=== PATIENT | female | born 1985 | race Two or more races ===

== ENCOUNTER 2016-08-26 08:51 | Emergency (ER) | payer SELFPAY ==
--- NOTE | 2016-08-26 09:09 | ER Document Report ---
ED General - General Chief Complaint: Overdose Stated Complaint: POSSIBLE OVERDOSE Mode of Arrival: Ambulatory Information source: Patient Notes: 30 yr old female presents with complaints of accidently taking 2 tablets of vyvanse, with complaints of lightheadedness, dizziness, sensation of floating away. TRAVEL OUTSIDE OF THE [place] IN LAST 30 DAYS: No - HPI Onset: Yesterday Onset/Duration: Sudden Quality of pain: No pain Severity: Mild Pain Level: Denies Associated symptoms: Other Exacerbated by: Denies Relieved by: Denies Similar symptoms previously: No Recently seen / treated by doctor: No - Related Data Allergies/Adverse Reactions: No Known Allergies Allergy (Verified 11/24/12 16:11) Past Medical History - Social History Smoking Status: Current Every Day Smoker Cigarette use (# per day): No Chew tobacco use (# tins/day): No Smoking Education Provided: No Frequency of alcohol use: Social Drug Abuse: None Family History: Reviewed & Not Pertinent Pulmonary Medical History: Reports: Hx Asthma Renal/ Medical History: Denies: Hx Peritoneal Dialysis Surgical Hx: Negative - Immunizations Hx Diphtheria, Pertussis, Tetanus Vaccination: Yes Review of Systems - Review of Systems Notes: REVIEW OF SYSTEMS: CONSTITUTIONAL : Denies fever, chills, or sweats. Denies recent illness. EENT: Denies eye, ear, throat, or mouth pain or symptoms. Denies nasal or sinus congestion or discharge. Denies throat, tongue, or mouth swelling or difficulty swallowing. CARDIOVASCULAR: Denies chest pain. Denies palpitations or racing or irregular heart beat. Denies ankle edema. RESPIRATORY: Denies cough, cold, or chest congestion. Denies shortness of breath, difficulty breathing, or wheezing. GASTROINTESTINAL: Denies abdominal pain or distention. Denies nausea, vomiting , or diarrhea. Denies blood in vomitus, stools, or per rectum. Denies black, tarry stools. Denies constipation. GENITOURINARY: Denies difficulty urinating, painful urination, burning, frequency, blood in urine, or discharge. FEMALE GENITOURINARY: Denies vaginal bleeding, heavy or abnormal periods, irregular periods. Denies vaginal discharge or odor. MUSCULOSKELETAL: Denies back or neck pain or stiffness. Denies joint pain or swelling. SKIN: Denies rash, lesions or sores. HEMATOLOGIC : Denies easy bruising or bleeding. LYMPHATIC: Denies swollen, enlarged glands. NEUROLOGICAL: Admits to feeling dizzy lightheaded PSYCHIATRIC: Denies anxiety or stress. Denies depression, suicidal ideation, or homicidal ideation. ALL OTHER SYSTEMS REVIEWED AND NEGATIVE. Dictation was performed using [employer] voice recognition software PHYSICAL EXAMINATION: GENERAL: Well-appearing, well-nourished and in no acute distress. HEAD: Atraumatic, normocephalic. EYES: Pupils equal round and reactive to light, extraocular movements intact, conjunctiva are normal. ENT: Nares patent, oropharynx clear without exudates. Moist mucous membranes. NECK: Normal range of motion, supple without lymphadenopathy LUNGS: Breath sounds clear to auscultation bilaterally and equal. No wheezes rales or rhonchi. HEART: Regular rate and rhythm without murmurs ABDOMEN: Soft, nontender, nondistended abdomen. No guarding, no rebound. No masses appreciated. Female : deferred Musculoskeletal: Normal range of motion, no pitting or edema. No cyanosis. NEUROLOGICAL: Cranial nerves grossly intact. Normal speech, normal gait. Normal sensory, motor exams PSYCH: Normal mood, normal affect. SKIN: Warm, Dry, normal turgor, no rashes or lesions noted. Physical Exam - Vital signs Vitals: Temp Pulse Resp BP Pulse Ox 98.1 F 107 H 16 133/92 H 97 08/26/16 08:57 08/26/16 08:57 08/26/16 08:57 08/26/16 08:57 08/26/16 08:57 Course - Re-evaluation Re-evalutation: 08/26/16 09:44 contacted poison control, they state to watch for 6 hours from initial onset, patient has been watched for longer than home in stable at this time. I will discharge her since she is stable 08/26/16 10:05 After performing a Medical Screening Examination, I estimate there is LOW risk for ACUTE CORONARY SYNDROME, RESPIRATORY FAILURE, SEPSIS OR MENINGITIS, thus I consider the discharge disposition reasonable. The patient and I have discussed the diagnosis and risks, and we agree with discharging home with close follow- up. We also discussed returning to the Emergency Department immediately if new or worsening symptoms occur. We have discussed the symptoms which are most concerning (e.g., changing or worsening pain, trouble swallowing or breathing, neck stiffness, fever) that necessitate immediate return. - Vital Signs Vital signs: Temp Pulse Resp BP Pulse Ox 98.1 F 107 H 16 133/92 H 97 08/26/16 08:57 08/26/16 08:57 08/26/16 08:57 08/26/16 08:57 08/26/16 08:57 Discharge - Discharge Clinical Impression: Accidental overdose Qualifiers: Encounter type: initial encounter Qualified Code(s): T50.901A - Poisoning by unspecified drugs, medicaments and biological substances, accidental ( unintentional), initial encounter Condition: Stable Disposition: HOME, SELF-CARE Additional Instructions: Follow up with your physician tomorrow for further care or return to the ED IMMEDIATELY if symptoms worsen or new concerns occur
[2016-08-26 10:11] VITALS: BP 131/84
== END 2016-08-26 10:10 | disposition home or self-care (01) ==
LOC: ER 08:51
DX: T50.901A Poisoning by unspecified drugs, medicaments and biological substances, accidental (unintentional), initial encounter (principal); F17.210 Nicotine dependence, cigarettes, uncomplicated
CPT/HCPCS: 99284

== ENCOUNTER 2016-10-17 00:46 | Emergency (ER) | payer BC ==
--- NOTE | 2016-10-17 03:40 | ER Document Report ---
ED General - General Chief Complaint: Chest Pain Stated Complaint: CHEST PAIN Notes: Patient is a 30-year-old female who presents with 2 different complaints. First complaint is that day and half ago she woke up with a painful lump underneath her chin. She did bring a picture with her. The area was reddened and have a small scab in the middle. Since then the redness is totally gone away. She still is a small scab there. No difficulty breathing or swallowing. She says that she woke up with this and did not remember any recent trauma or injuries to the area. She did not recognize any recent bug bites. Patient's second complaint is of chest pain. She said chest pain for several months. She says it is constant. It is always on the right side. It is worse when she pushes over the right side of her chest or she moves her right shoulder in a certain way. She recently quit smoking. She recent started control one month ago. The pain had been going on since before she has started control. She denies any fevers or infections. Pain is not pleuritic. TRAVEL OUTSIDE OF THE [place] IN LAST 30 DAYS: No - Related Data Allergies/Adverse Reactions: No Known Allergies Allergy (Verified 10/17/16 01:22) Past Medical History - Social History Smoking Status: Unknown if Ever Smoked Frequency of alcohol use: None Drug Abuse: None Family History: Reviewed & Not Pertinent Pulmonary Medical History: Reports: Hx Asthma Renal/ Medical History: Denies: Hx Peritoneal Dialysis - Immunizations Hx Diphtheria, Pertussis, Tetanus Vaccination: Yes Review of Systems - Review of Systems Notes: My Normal Review Basic REVIEW OF SYSTEMS: CONSTITUTIONAL : Denies fever, chills, or sweats. Denies recent illness. CARDIOVASCULAR: Chest pain RESPIRATORY: Denies cough, cold, or chest congestion. Denies shortness of breath, difficulty breathing, or wheezing. GASTROINTESTINAL: Denies abdominal pain. Denies nausea, vomiting, or diarrhea. Denies constipation. Last BM: GENITOURINARY: Denies difficulty urinating, painful urination, burning, frequency, or blood in urine. MUSCULOSKELETAL: Denies neck or back pain or joint pain or swelling. SKIN: Denies rash or skin lesions. NEUROLOGICAL: Denies altered mental status or loss of consciousness. Denies headache. Denies weakness or paralysis or loss of use of either side. Denies problems with gait or speech. Denies sensory or motor loss. ALL OTHER SYSTEMS REVIEWED AND NEGATIVE. Physical Exam - Vital signs Vitals: Temp Pulse Resp BP Pulse Ox 98.6 F 96 14 126/84 H 100 10/17/16 01:22 10/17/16 01:22 10/17/16 01:22 10/17/16 01:22 10/17/16 01:22 - Notes Notes: General Appearance: Well nourished, alert, cooperative, no acute distress, mild obvious discomfort. Vitals: reviewed, See vital signs table. Head: no swelling or tenderness to the head. Patient has a small scab underneath her chin. This no surrounding redness. This no swelling. I did do a bedside ultrasound and there is no obvious fluid collection beneath the skin on ultrasound. Eyes: PERRL, EOMI, Conjuctiva clear Mouth: No decreasd moisture Throat: No tonsillar inflammation, No airway obstruction, No lymphadenopathy Neck: Supple, no neck tenderness, Lungs: No wheezing, No rales, No rhonci, No accessory muscle use, good air exchange bilaterally. Heart: Normal rate, Regular rythm, No murmur, no rub Chest wall: Patient has easily reproducible pain to palpation of the muscles of the right upper chest and over the trapezius areas well. Some pain over the posterior trapezius just above the scapula. Extremities: strength 5/5 in all extremities, good pulses in all extremities, no swelling or tenderness in the extremities, no edema. Skin: warm, dry, appropriate color, no rash Neuro: speech clear, oriented x 3, normal affect, responds appropriately to questions. Course - Vital Signs Vital signs: Temp Pulse Resp BP Pulse Ox 98.1 F 96 14 120/78 99 10/17/16 05:00 10/17/16 01:22 10/17/16 05:00 10/17/16 05:00 10/17/16 05:00 - EKG Interpretation by Me Additional EKG results interpreted by me: 10/17/16 03:39 EKG is reviewed and interpreted by me. EKG shows normal sinus rhythm with rate of [address] segment elevation or depression. No ischemic T wave inversions. [place] interval, QRS duration, QTC intervals are within normal range. Old EKG for comparison is from 01/23/2016. - Transfer of Care Notes: 10/17/16 06:20 It is unclear exactly what caused the scab like appearance and initial redness underneath the patient's chin. In comparison to her picture from 24 hours ago her chin is much improved. She has no sniffing swelling below her chin. She has no impending airway compromise on exam. At this time I encourage her to skip a close eye on it and if she develops any redness or swelling she should return to ER immediately. The chest pain seems very musculoskeletal exam. Seasonal reproducible with palpation as well as with certain movements. I will place her on Naprosyn. I do not suspect PE in that she does not have pleuritic pain, her pain is easily reproducible palpation, she has no tachycardia, no tachypnea, and no hypoxemia. Patient encouraged return to ER if she has any worsening of her symptoms. Dictation of this chart was performed using voice recognition software; therefore, there may be some unintended grammatical errors. 10/17/16 06:22 Discharge - Discharge Clinical Impression: Skin lesion Chest pain Qualifiers: Chest pain type: unspecified Qualified Code(s): R07.9 - Chest pain, unspecified Condition: Good Disposition: HOME, SELF-CARE Additional Instructions: CHEST PAIN OF UNCLEAR CAUSE: The exact cause of your chest pain isn't clear. Fortunately, there is no evidence of a dangerous medical condition. Further testing may be required to find the source of the pain. Most often, we find that this pain is coming from the chest wall -- the muscles or rib joints in the chest. But chest pain can come from the lung and lung lining, the esophagus, the heart valves or heart lining, and even the stomach or gallbladder. Rest. Eat lightly until the pain is gone. We may prescribe medicine for pain and inflammation. You should call the physician immediately if the pain radiates to the shoulder, jaw or arms; if you start to run a fever or develop a cough; or if you develop shortness of breath, or other new or alarming symptoms. NORMAL EXAM AND WORKUP: At this time, your examination and workup show no significant abnormality. No significant abnormal physical findings were noted. EKG and imaging (x-ray ) studies that were ordered show no significant abnormality. Although your examination and all studies that were ordered showed no significant abnormal finding, there are no examinations and no studies that are 100% accurate. There is always the possibility that some abnormality could exist and not be detected with physical examination or within the limits and capabilities of laboratory and other studies. You should return or follow up as you were instructed on your visit today for further evaluation if your symptoms do not resolve. CHEST WALL PAIN: Your chest pain may be coming from the chest wall. This is often caused by straining the muscles or joints in the chest during physical activity, direct trauma, coughing, or vigorous vomiting. Persons with arthritis are especially prone to this type of pain, due to inflammation of the cartilage joints near the breast bone. Occasionally, no cause can be found. Rest from strenuous physical activity. This kind of chest pain is usually made worse by movement of the chest. Depending on the symptoms, we may prescribe medicine for pain, muscle relaxation, and antiinflammatory effects. If the pain is new, and seems to be due to muscle strain, cold packs can help. Otherwise, apply gentle warmth to the painful area for 15 minutes every hour or two. You should call contact the doctor immediately if things change. Further evaluation is needed if you develop a fever or cough, if the nature of the pain changes, or if you become short of breath. FOLLOW-UP CARE: If you have been referred to a physician for follow-up care, call the physician s office for an appointment as you were instructed or within the next two days. If you experience worsening or a significant change in your symptoms, notify the physician immediately or return to the Emergency Department at any time for re-evaluation. Please return to ER immediately if you have worsening pain, difficulty breathing , fevers, or feel unwell. Please continue to watch the area under her chin closely. Return to ER immediately if you start having increased swelling or recurrence of redness or difficulty breathing. Please follow-up with a primary care doctor in 3-4 days for reevaluation. Do not take the Naprosyn with other NSAID medications such as Motrin or Ibuprofen. Prescriptions: Naproxen [Naprosyn 250 mg Tablet] 250 mg PO BID #20 tablet Forms: Return to Work
[2016-10-17 05:21] VITALS: BP 120/78
--- NOTE | 2016-10-17 21:12 | EKG REPORT ---
SEVERITY:- NORMAL ECG - SINUS RHYTHM : Confirmed by: Benita Morse MD 17-Oct-2016 21:11:33
== END 2016-10-17 05:20 | disposition home or self-care (01) ==
LOC: ER 00:46
DX: R07.9 Chest pain, unspecified (principal); Z87.891 Personal history of nicotine dependence
CPT/HCPCS: 71010; 93005; 93010; 99285

== ENCOUNTER 2016-10-28 19:04 | Emergency (ER) | payer BC ==
--- NOTE | 2016-10-28 19:40 | ER Document Report ---
ED General - General Chief Complaint: Sore Throat Stated Complaint: SORE THROAT/JAW PAIN Mode of Arrival: Ambulatory Information source: Patient Notes: Patient is 30 year old female who presents with 1 day history of sore throat. She denies any fever, chills, cough, difficulty swallowing or speaking, ear pain or nasal congestion. She has been exposed to family members who have strep and her is here also with same symptoms. She has not taken anything for these symptoms. TRAVEL OUTSIDE OF THE [place] IN LAST 30 DAYS: No - Related Data Allergies/Adverse Reactions: No Known Allergies Allergy (Verified 10/17/16 01:22) Past Medical History - General Information source: Patient - Social History Smoking Status: Unknown if Ever Smoked Family History: Reviewed & Not Pertinent Pulmonary Medical History: Reports: Hx Asthma Renal/ Medical History: Denies: Hx Peritoneal Dialysis - Immunizations Hx Diphtheria, Pertussis, Tetanus Vaccination: Yes Review of Systems - Review of Systems Constitutional: See HPI EENT: See HPI Cardiovascular: No symptoms reported Respiratory: No symptoms reported Gastrointestinal: No symptoms reported Genitourinary: No symptoms reported Female Genitourinary: No symptoms reported Musculoskeletal: No symptoms reported Skin: No symptoms reported Hematologic/Lymphatic: No symptoms reported Neurological/Psychological: No symptoms reported Physical Exam - Vital signs Vitals: Temp Pulse Resp BP Pulse Ox 98.6 F 85 16 118/81 99 10/28/16 19:06 10/28/16 19:06 10/28/16 19:06 10/28/16 19:06 10/28/16 19:06 Interpretation: Normal - Notes Notes: PHYSICAL EXAM: CONSTITUTIONAL: Alert and oriented, well-appearing and in no acute distress. HENT: Normocephalic, atraumatic. Ear canals without erythema or foreign body, TMs pearly holder with good bony landmarks. Nares clear without erythema, septal hematoma or deviation, airway patent. Oropharynx clear without erythema, tonsilar exudate or malocclusion. Trachea midline. Uvula midline. Moist mucous membranes. EYES: Pupils equal round and reactive to light, EOM intact. Sclera anicteric, conjunctiva are normal. No entrapment. NECK: supple without lymphadenopathy. No midline tenderness or paraspinous muscle spasms. No step-offs or deformities. ROM intact. HEART: Regular rate and rhythm without murmurs. LUNGS: CTAB and equal. No wheezes, rales or rhonchi. EXTREMITIES: Normal range of motion, no pitting edema. No cyanosis. Cap Refill < 3 seconds. SKIN: Warm and dry. Normal turgor. No rashes or lesions noted. Course - Re-evaluation Re-evalutation: 10/28/16 19:39 Patient seen and examined. VSS, no respiratory distress, speaking in full sentences without difficulty. Exam benign. Will swab for strep due to exposure. Rapid strep negative - culture pending. Discussed supportive care treatments. At this time, will discharge with return precautions and follow-up recommendations. Verbal discharge instructions given at the bedside and opportunity for questions given. Medication warnings reviewed. Patient is in agreement with this plan and has verbalized understanding of return precautions and the need for primary care follow-up in the next 24-72 hours. - Vital Signs Vital signs: Temp Pulse Resp BP Pulse Ox 98.6 F 85 16 118/81 99 10/28/16 19:06 10/28/16 19:06 10/28/16 19:06 10/28/16 19:06 10/28/16 19:06 Discharge - Discharge Clinical Impression: Pharyngitis Qualifiers: Pharyngitis/tonsillitis etiology: unspecified etiology Qualified Code(s): J02.9 - Acute pharyngitis, unspecified URI (upper respiratory infection) Qualifiers: URI type: unspecified URI Qualified Code(s): J06.9 - Acute upper respiratory infection, unspecified Condition: Stable Disposition: HOME, SELF-CARE Instructions: Sore Throat ([facility]) Additional Instructions: You can use [id number] ZYRTEC (cetirizine) to help with congestion and post-nasal drainage causing your sore throat. You can also take ibuprofen or tylenol as needed for pain. Return immediately for any new or worsening symptoms. Follow-up with primary care provider, call tomorrow to make followup appointment. Referrals: CHRIS LAWRENCE MD [Primary Care Provider] - Follow up in 3-5 days
[2016-10-28 21:43] VITALS: BP 120/78
== END 2016-10-28 21:05 | disposition home or self-care (01) ==
LOC: ER 19:04
DX: J02.9 Acute pharyngitis, unspecified (principal); J06.9 Acute upper respiratory infection, unspecified
CPT/HCPCS: 87070; 87880; 99283

== ENCOUNTER 2017-07-02 15:38 | Emergency (ER) | payer BC ==
--- NOTE | 2017-07-02 15:55 | ER Document Report ---
ED Medical Screen (RME) - General Chief Complaint: Pelvic Pain Stated Complaint: ABDOMINAL PAIN Time Seen by Provider: 07/02/17 15:49 Notes: This 31-year-old female patient thinks she may be miscarrying. Last menstrual period was around 05/16/2017. She is not certain if she was or not. This would be her first if she is . She developed some vaginal bleeding with bright red blood and clots and cramping yesterday. She reports passing a large clot or tissue that she has saved in a plastic bag. I have greeted and performed a rapid initial assessment of this patient. A comprehensive ED assessment and evaluation of the patient, analysis of test results and completion of the medical decision making process will be conducted by additional ED providers. TRAVEL OUTSIDE OF THE [place] IN LAST 30 DAYS: No - Related Data Allergies/Adverse Reactions: No Known Allergies Allergy (Verified 10/17/16 01:22) Home Medications: Current Home Medications No Home Medications 07/02/17 [History] Past Medical History - General Last Menstrual Period: 05/15/17 - Social History Chew tobacco use (# tins/day): No Frequency of alcohol use: None Drug Abuse: None Family history: None Pulmonary Medical History: Reports: Hx Asthma Renal/ Medical History: Denies: Hx Peritoneal Dialysis - Immunizations Hx Diphtheria, Pertussis, Tetanus Vaccination: Yes Physical Exam - Vital signs Vitals: Temp Pulse Resp BP Pulse Ox 98.3 F 122 H 20 132/66 H 100 07/02/17 15:44 07/02/17 15:44 07/02/17 15:44 07/02/17 15:44 07/02/17 15:44 Course - Vital Signs Vital signs: Temp Pulse Resp BP Pulse Ox 98.3 F 122 H 20 132/66 H 100 07/02/17 15:44 07/02/17 15:44 07/02/17 15:44 07/02/17 15:44 07/02/17 15:44
[2017-07-02 16:21] LABS: ABSOLUTE EOSINOPHILS # (AUTO) 0.1 10^3/uL (0.0-0.6); ABSOLUTE LYMPHOCYTES (AUTO) 1.4 10^3/uL (0.5-4.7); ABSOLUTE MONOCYTES (AUTO) 0.5 10^3/uL (0.1-1.4); ABSOLUTE NEUT (AUTO) 3.7 10^3/uL (1.7-8.2); BASOPHILS % (AUTO) 0.8 % (0-2); EOSINOPHILS % (AUTO) 1.2 % (0-6); HEMATOCRIT 35.4 % (36.0-47.0); HEMOGLOBIN 11.4 g/dL (12.0-15.5); HGB HCT DIFFERENCE -1.2; LYMPHOCYTES % (AUTO) 24.3 % (13-45); MEAN CORPUSCULAR HEMOGLOBIN 23.2 pg (27.0-33.4); MEAN CORPUSCULAR HGB CONC 32.1 g/dL (32.0-36.0); MEAN CORPUSCULAR VOLUME 72 fl (80-97); MONOCYTES % (AUTO) 8.1 % (3-13); RED BLOOD COUNT 4.91 10^6/uL (3.72-5.28); SEGMENTED NEUTROPHILS % (AUTO) 65.6 % (42-78); WHITE BLOOD COUNT 5.6 10^3/uL (4.0-10.5)
[2017-07-02 16:28] VITALS: BP 123/63
--- NOTE | 2017-07-02 17:04 | ER Document Report ---
ED General - General Chief Complaint: Pelvic Pain Stated Complaint: ABDOMINAL PAIN Time Seen by Provider: 07/02/17 15:49 Mode of Arrival: Ambulatory Information source: Patient Notes: 31-year-old female presents with complaints of vaginal bleeding concern for miscarriage. Patient noted a large clots today. Pt denies any previous TRAVEL OUTSIDE OF THE [place] IN LAST 30 DAYS: No - HPI Onset: Yesterday Onset/Duration: Sudden Quality of pain: Cramping Severity: Mild Pain Level: 1 Associated symptoms: Other Exacerbated by: Denies Relieved by: Denies Similar symptoms previously: No Recently seen / treated by doctor: No - Related Data Allergies/Adverse Reactions: No Known Allergies Allergy (Verified 10/17/16 01:22) Home Medications: Current Home Medications No Home Medications 07/02/17 [History] Past Medical History - General Last Menstrual Period: 05/15/17 - Social History Smoking Status: Current Some Day Smoker Cigarette use (# per day): Yes Chew tobacco use (# tins/day): No Smoking Education Provided: No Frequency of alcohol use: None Drug Abuse: None Family History: Reviewed & Not Pertinent Patient has suicidal ideation: No Patient has homicidal ideation: No Pulmonary Medical History: Reports: Hx Asthma Renal/ Medical History: Denies: Hx Peritoneal Dialysis - Immunizations Hx Diphtheria, Pertussis, Tetanus Vaccination: Yes Review of Systems - Review of Systems Notes: REVIEW OF SYSTEMS: CONSTITUTIONAL : Denies fever, chills, or sweats. Denies recent illness. EENT: Denies eye, ear, throat, or mouth pain or symptoms. Denies nasal or sinus congestion or discharge. Denies throat, tongue, or mouth swelling or difficulty swallowing. CARDIOVASCULAR: Denies chest pain. Denies palpitations or racing or irregular heart beat. Denies ankle edema. RESPIRATORY: Denies cough, cold, or chest congestion. Denies shortness of breath, difficulty breathing, or wheezing. GASTROINTESTINAL: Denies abdominal pain or distention. Denies nausea, vomiting , or diarrhea. Denies blood in vomitus, stools, or per rectum. Denies black, tarry stools. Denies constipation. GENITOURINARY: Denies difficulty urinating, painful urination, burning, frequency, blood in urine, or discharge. FEMALE GENITOURINARY: Admits to vaginal bleeding MUSCULOSKELETAL: Denies back or neck pain or stiffness. Denies joint pain or swelling. SKIN: Denies rash, lesions or sores. HEMATOLOGIC : Denies easy bruising or bleeding. LYMPHATIC: Denies swollen, enlarged glands. NEUROLOGICAL: Denies confusion or altered mental status. Denies passing out or loss of consciousness. Denies dizziness or lightheadedness. Denies headache. Denies weakness or paralysis or loss of use of either side. Denies problems with gait or speech. Denies sensory loss, numbness, or tingling. Denies seizures. PSYCHIATRIC: Denies anxiety or stress. Denies depression, suicidal ideation, or homicidal ideation. ALL OTHER SYSTEMS REVIEWED AND NEGATIVE. PHYSICAL EXAMINATION: GENERAL: Well-appearing, well-nourished and in no acute distress. HEAD: Atraumatic, normocephalic. EYES: Pupils equal round and reactive to light, extraocular movements intact, conjunctiva are normal. ENT: Nares patent, oropharynx clear without exudates. Moist mucous membranes. NECK: Normal range of motion, supple without lymphadenopathy LUNGS: Breath sounds clear to auscultation bilaterally and equal. No wheezes rales or rhonchi. HEART: Regular rate and rhythm without murmurs ABDOMEN: Soft, nontender, nondistended abdomen. No guarding, no rebound. No masses appreciated. Female : deferred Musculoskeletal: Normal range of motion, no pitting or edema. No cyanosis. NEUROLOGICAL: Cranial nerves grossly intact. Normal speech, normal gait. Normal sensory, motor exams PSYCH: Normal mood, normal affect. SKIN: Warm, Dry, normal turgor, no rashes or lesions noted. Dictation was performed using [employer] voice recognition software Physical Exam - Vital signs Vitals: Temp Pulse Resp BP Pulse Ox 98.3 F 122 H 20 132/66 H 100 07/02/17 15:44 07/02/17 15:44 07/02/17 15:44 07/02/17 15:44 07/02/17 15:44 Course - Re-evaluation Re-evalutation: 07/02/17 17:10 Patient is noted to have been Quant was quite low though, I will have a repeat in 48 Hours However She Did Pass very large clots which have been sent down to be evaluated by pathology Patient otherwise appears in no distress vital signs are stable After performing a Medical Screening Examination, I estimate there is LOW risk for ACUTE APPENDICITIS, BOWEL OBSTRUCTION, ACUTE CHOLECYSTITIS, PERFORATED DIVERTICULITIS, INCARCERATED HERNIA, PANCREATITIS, PELVIC INFLAMMATORY DISEASE, PERFORATED ULCER, ECTOPIC , or TUBO-OVARIAN ABSCESS, thus I consider the discharge disposition reasonable. Also, there is no evidence or peritonitis , sepsis, or toxicity. I have reevaluated this patient multiple times and no significant life threatening changes are noted. The patient and I have discussed the diagnosis and risks, and we agree with discharging home with close follow-up with the understanding that symptoms and presentations can change. We also discussed returning to the Emergency Department immediately if new or worsening symptoms occur. We have discussed the symptoms which are most concerning (e.g., bloody stool, fever, changing or worsening pain, vomiting) that necessitate immediate return. - Vital Signs Vital signs: Temp Pulse Resp BP Pulse Ox 98.8 F 93 18 123/63 97 07/02/17 16:27 07/02/17 16:27 07/02/17 16:27 07/02/17 16:27 07/02/17 16:27 - Laboratory Result Diagrams: 07/02/17 15:55 Laboratory results interpreted by me: 07/02/17 07/02/17 15:55 15:55 Hgb 11.4 L Hct 35.4 L MCV 72 L MCH 23.2 L Beta HCG, Quant 138.30 H Discharge - Discharge Clinical Impression: Threatened miscarriage Condition: Stable Disposition: HOME, SELF-CARE Instructions: Threatened Miscarriage ([facility]) Forms: Follow-Up Laboratory Testing Referrals: [facility] [Provider Group] - 07/04/17
== END 2017-07-02 17:14 | disposition home or self-care (01) ==
LOC: ER 15:38
DX: O20.0 Threatened abortion (principal); O99.331 Smoking (tobacco) complicating pregnancy, first trimester; F17.210 Nicotine dependence, cigarettes, uncomplicated; O99.511 Diseases of the respiratory system complicating pregnancy, first trimester; J45.909 Unspecified asthma, uncomplicated; Z3A.01 Less than 8 weeks gestation of pregnancy; O26.891 Other specified pregnancy related conditions, first trimester
CPT/HCPCS: 36415; 84702; 85025; 86900; 86901; 88305; 99284

== ENCOUNTER 2017-07-03 15:20 | Emergency (ER) | payer BC ==
[2017-07-03 15:46] VITALS: BP 123/77
--- NOTE | 2017-07-03 15:53 | ER Document Report ---
ED Medical Screen (RME) - General Chief Complaint: Abdominal Pain Stated Complaint: ABDOMINAL PAIN Time Seen by Provider: 07/03/17 15:52 Notes: 31-year-old female patient seen here yesterday with hCG level of 138, oh positive blood. Report symptoms of cramping and bleeding gotten worse. I have greeted and performed a rapid initial assessment of this patient. A comprehensive ED assessment and evaluation of the patient, analysis of test results and completion of the medical decision making process will be conducted by additional ED providers. TRAVEL OUTSIDE OF THE [place] IN LAST 30 DAYS: No - Related Data Allergies/Adverse Reactions: No Known Allergies Allergy (Verified 07/03/17 15:21) Past Medical History - Social History Family history: None Pulmonary Medical History: Reports: Hx Asthma Renal/ Medical History: Denies: Hx Peritoneal Dialysis - Immunizations Hx Diphtheria, Pertussis, Tetanus Vaccination: Yes Physical Exam - Vital signs Vitals: Temp Pulse Resp BP Pulse Ox 98.8 F 88 16 123/77 100 07/03/17 15:45 07/03/17 15:45 07/03/17 15:45 07/03/17 15:45 07/03/17 15:45 Course - Vital Signs Vital signs: Temp Pulse Resp BP Pulse Ox 98.8 F 88 16 123/77 100 07/03/17 15:45 07/03/17 15:45 07/03/17 15:45 07/03/17 15:45 07/03/17 15:45
--- NOTE | 2017-07-03 16:58 | ER Document Report ---
ED General - General Chief Complaint: Abdominal Pain Stated Complaint: ABDOMINAL PAIN Time Seen by Provider: 07/03/17 15:52 Mode of Arrival: Ambulatory Information source: Patient Notes: 31-year-old female who was seen by myself yesterday with an hCG quant of 138 presents today with continued bleeding and concerns for miscarriage, I had explained to the patient yesterday that she had come back in 48 hours however she wanted to be sure so she presented today TRAVEL OUTSIDE OF THE [place] IN LAST 30 DAYS: No - HPI Onset: Other - 2 days ago Onset/Duration: Persistent Quality of pain: Cramping Severity: Mild Pain Level: 1 Associated symptoms: Other Exacerbated by: Denies Relieved by: Denies Similar symptoms previously: Yes Recently seen / treated by doctor: Yes - Related Data Allergies/Adverse Reactions: No Known Allergies Allergy (Verified 07/03/17 15:21) Past Medical History - Social History Smoking Status: Current Some Day Smoker Cigarette use (# per day): Yes Chew tobacco use (# tins/day): No Smoking Education Provided: No Frequency of alcohol use: None Drug Abuse: None Family History: Reviewed & Not Pertinent Patient has suicidal ideation: No Patient has homicidal ideation: No Pulmonary Medical History: Reports: Hx Asthma Renal/ Medical History: Denies: Hx Peritoneal Dialysis - Immunizations Hx Diphtheria, Pertussis, Tetanus Vaccination: Yes Review of Systems - Review of Systems Notes: REVIEW OF SYSTEMS: CONSTITUTIONAL : Denies fever, chills, or sweats. Denies recent illness. EENT: Denies eye, ear, throat, or mouth pain or symptoms. Denies nasal or sinus congestion or discharge. Denies throat, tongue, or mouth swelling or difficulty swallowing. CARDIOVASCULAR: Denies chest pain. Denies palpitations or racing or irregular heart beat. Denies ankle edema. RESPIRATORY: Denies cough, cold, or chest congestion. Denies shortness of breath, difficulty breathing, or wheezing. GASTROINTESTINAL: Denies abdominal pain or distention. Denies nausea, vomiting , or diarrhea. Denies blood in vomitus, stools, or per rectum. Denies black, tarry stools. Denies constipation. GENITOURINARY: Denies difficulty urinating, painful urination, burning, frequency, blood in urine, or discharge. FEMALE GENITOURINARY: Admits to vaginal bleeding MUSCULOSKELETAL: Denies back or neck pain or stiffness. Denies joint pain or swelling. SKIN: Denies rash, lesions or sores. HEMATOLOGIC : Denies easy bruising or bleeding. LYMPHATIC: Denies swollen, enlarged glands. NEUROLOGICAL: Denies confusion or altered mental status. Denies passing out or loss of consciousness. Denies dizziness or lightheadedness. Denies headache. Denies weakness or paralysis or loss of use of either side. Denies problems with gait or speech. Denies sensory loss, numbness, or tingling. Denies seizures. PSYCHIATRIC: Denies anxiety or stress. Denies depression, suicidal ideation, or homicidal ideation. ALL OTHER SYSTEMS REVIEWED AND NEGATIVE. PHYSICAL EXAMINATION: GENERAL: Well-appearing, well-nourished and in no acute distress. HEAD: Atraumatic, normocephalic. EYES: Pupils equal round and reactive to light, extraocular movements intact, conjunctiva are normal. ENT: Nares patent, oropharynx clear without exudates. Moist mucous membranes. NECK: Normal range of motion, supple without lymphadenopathy LUNGS: Breath sounds clear to auscultation bilaterally and equal. No wheezes rales or rhonchi. HEART: Regular rate and rhythm without murmurs ABDOMEN: Soft, nontender, nondistended abdomen. No guarding, no rebound. No masses appreciated. Female : deferred Musculoskeletal: Normal range of motion, no pitting or edema. No cyanosis. NEUROLOGICAL: Cranial nerves grossly intact. Normal speech, normal gait. Normal sensory, motor exams PSYCH: Normal mood, normal affect. SKIN: Warm, Dry, normal turgor, no rashes or lesions noted. Dictation was performed using [employer] voice recognition software Physical Exam - Vital signs Vitals: Temp Pulse Resp BP Pulse Ox 98.8 F 88 16 123/77 100 07/03/17 15:45 07/03/17 15:45 07/03/17 15:45 07/03/17 15:45 07/03/17 15:45 Course - Re-evaluation Re-evalutation: 07/03/17 16:58 I have repeated her hCG quant, I explained to her she is a little too early if the numbers are going up but if it is going down that we know for sure that she is miscarrying 07/03/17 17:17 Patient's quant has decreased to 60, she is deathly having miscarriage, I have given her very strict return precautions she states he understands After performing a Medical Screening Examination, I estimate there is LOW risk for ACUTE APPENDICITIS, BOWEL OBSTRUCTION, ACUTE CHOLECYSTITIS, PERFORATED DIVERTICULITIS, INCARCERATED HERNIA, PANCREATITIS, PELVIC INFLAMMATORY DISEASE, PERFORATED ULCER, ECTOPIC , or TUBO-OVARIAN ABSCESS, thus I consider the discharge disposition reasonable. Also, there is no evidence or peritonitis , sepsis, or toxicity. I have reevaluated this patient multiple times and no significant life threatening changes are noted. The patient and I have discussed the diagnosis and risks, and we agree with discharging home with close follow-up with the understanding that symptoms and presentations can change. We also discussed returning to the Emergency Department immediately if new or worsening symptoms occur. We have discussed the symptoms which are most concerning (e.g., bloody stool, fever, changing or worsening pain, vomiting) that necessitate immediate return. - Vital Signs Vital signs: Temp Pulse Resp BP Pulse Ox 98.8 F 88 16 123/77 100 07/03/17 15:45 07/03/17 15:45 07/03/17 15:45 07/03/17 15:45 07/03/17 15:45 - Laboratory Laboratory results interpreted by me: 07/03/17 16:10 Beta HCG, Quant 59.32 H Discharge - Discharge Clinical Impression: Miscarriage Condition: Stable Disposition: HOME, SELF-CARE Instructions: Miscarriage ([facility]) Prescriptions: Hydrocodone/Acetaminophen [Douglas 5-325 mg Tablet] 1 tab PO Q6 #10 tablet Referrals: [facility] [Provider Group] - Follow up tomorrow
== END 2017-07-03 17:27 | disposition home or self-care (01) ==
LOC: ER 15:20
DX: O03.9 Complete or unspecified spontaneous abortion without complication (principal); R10.9 Unspecified abdominal pain; F17.210 Nicotine dependence, cigarettes, uncomplicated
CPT/HCPCS: 36415; 84702; 99283

== ENCOUNTER 2017-10-09 18:14 | Emergency (ER) | payer BC ==
[2017-10-09 18:30] VITALS: BP 132/50
[2017-10-09 19:00] LABS: APPEARANCE,URINE SLIGHTLY-CLOUDY; BILIRUBIN,URINE NEGATIVE (NEGATIVE); COLOR,URINE YELLOW; GLUCOSE, URINE NEGATIVE (NEGATIVE); KETONES,URINE NEGATIVE (NEGATIVE); LEUKOCYTE ESTERASE,URINE NEGATIVE (NEGATIVE); NITRITE,URINE NEGATIVE (NEGATIVE); PROTEIN,URINE NEGATIVE (NEGATIVE); URINE SPECIFIC GRAVITY 1.017; UROBILINOGEN,URINE NEGATIVE mg/dL (<2.0)
--- NOTE | 2017-10-09 19:06 | ER Document Report ---
ED Medical Screen (RME) - General Chief Complaint: Pelvic Pain Stated Complaint: PELVIC CRAMPING Time Seen by Provider: 10/09/17 18:59 Notes: RME DISCLOSURE I have seen this patient as part of a Rapid Medical Evaluation and, if applicable, placed any initially appropriate orders. The patient will be seen and fully evaluated, including a full history and physical exam, by a provider ( in Main ED or Fast Track) when a room becomes available. 31-year-old female approximately 6-7 weeks gestation here with complaints of lower abdominal cramping that started earlier today. She does not have any vaginal discharge or bleeding or dysuria or nausea/vomiting. She has not yet had an ultrasound. TRAVEL OUTSIDE OF THE [place] IN LAST 30 DAYS: No - Related Data Allergies/Adverse Reactions: No Known Allergies Allergy (Verified 07/03/17 15:21) Past Medical History - Social History Family history: None Pulmonary Medical History: Reports: Hx Asthma Renal/ Medical History: Denies: Hx Peritoneal Dialysis - Immunizations Hx Diphtheria, Pertussis, Tetanus Vaccination: Yes Physical Exam - Vital signs Vitals: Temp Pulse Resp BP Pulse Ox 98.1 F 85 18 132/50 H 100 10/09/17 18:28 10/09/17 18:28 10/09/17 18:28 10/09/17 18:28 10/09/17 18:28 Course - Vital Signs Vital signs: Temp Pulse Resp BP Pulse Ox 98.1 F 85 18 132/50 H 100 10/09/17 18:28 10/09/17 18:28 10/09/17 18:28 10/09/17 18:28 10/09/17 18:28
[2017-10-09 20:02] LABS: ABSOLUTE LYMPHOCYTES (AUTO) 1.8 10^3/uL (0.5-4.7); ABSOLUTE MONOCYTES (AUTO) 0.5 10^3/uL (0.1-1.4); ABSOLUTE NEUT (AUTO) 5.1 10^3/uL (1.7-8.2); BASOPHILS % (AUTO) 0.5 % (0-2); EOSINOPHILS % (AUTO) 0.3 % (0-6); HEMATOCRIT 36.2 % (36.0-47.0); HEMOGLOBIN 11.5 g/dL (12.0-15.5); LYMPHOCYTES % (AUTO) 23.5 % (13-45); MEAN CORPUSCULAR HEMOGLOBIN 22.8 pg (27.0-33.4); MEAN CORPUSCULAR HGB CONC 31.8 g/dL (32.0-36.0); MEAN CORPUSCULAR VOLUME 72 fl (80-97); MONOCYTES % (AUTO) 7.3 % (3-13); PLATELET COUNT 288 10^3/uL (150-450); RED BLOOD COUNT 5.06 10^6/uL (3.72-5.28); RED CELL DISTRIBUTION WIDTH 14.3 % (11.5-14.0); SEGMENTED NEUTROPHILS % (AUTO) 68.4 % (42-78); TOTAL CELLS COUNTED % (AUTO) 100 %; WHITE BLOOD COUNT 7.5 10^3/uL (4.0-10.5)
[2017-10-09 20:16] LABS: ALANINE AMINOTRANSFERASE 43 U/L (9-52); ALBUMIN 4.4 g/dL (3.5-5.0); ALKALINE PHOSPHATASE 85 U/L (38-126); ANION GAP 9 (5-19); ASPARTATE AMINO TRANSFERASE 20 U/L (14-36); BILIRUBIN,TOTAL 0.2 mg/dL (0.2-1.3); BLOOD UREA NITROGEN 7 mg/dL (7-20); CALCIUM 9.6 mg/dL (8.4-10.2); CARBON DIOXIDE 27 mmol/L (22-30); CHLORIDE 103 mmol/L (98-107); GLUCOSE 77 mg/dL (75-110); LIPASE 69.2 U/L (23-300); POTASSIUM 3.9 mmol/L (3.6-5.0); SODIUM 139.1 mmol/L (137-145); TOTAL PROTEIN 7.5 g/dL (6.3-8.2)
--- NOTE | 2017-10-09 21:42 | RADIOLOGY REPORT (SQ) ---
EXAM DESCRIPTION: U/S OB TRANSVAGINAL W/O DOP COMPLETED DATE/TIME: 10/09/2017 8:45 pm REASON FOR STUDY: cramping, 6 wk preg; eval ectopic COMPARISON: None. TECHNIQUE: Endovaginal static and realtime grayscale images acquired of the pelvis. Additional selec steve spectral and color Doppler images recorded. All images stored on PACs. bHCG: Not available LIMITATIONS: None. FINDINGS: An intrauterine gestational sac is present containing a yolk sac. Embryo is not yet seen. Mean sac diameter generates an estimated age of 6 weeks 0 days. Close follow-up with serial quanti tative HCG and repeat ultrasound recommended. SUBCHORIONIC BLEED: Yes SIZE OF BLEED: 2 cm x 0.6 cm in size UTERUS: Uterus is 9 x 5 x 6 cm in size with a 3 cm fundal fibroid CERVICAL LENGTH: 3.7 cm Closed. RIGHT ADNEXA: Right ovary 4.3 x 3.3 x 2.2 cm in size, with a 1.7 cm cyst likely the corpus luteum No adnexal free fluid. No adnexal masses. LEFT ADNEXA: Left ovary 2.4 x 2.6 x 3.2 cm in size. No adnexal free fluid. No adnexal masses. FREE FLUID: None. OTHER: No other significant finding. IMPRESSION: Early intrauterine , gestational sac with yolk sac is identified. Embryo is no t yet seen. Small subchorionic hemorrhage No free pelvic fluid. 1.7 cm cyst left ovary likely the corpus luteum Trimester of : First - 0 to 13 weeks. TECHNICAL DOCUMENTATION: JOB ID: [id number] [employer]- All Rights Reserved Reading location - IP/workstation name: [email or web address]
--- NOTE | 2017-10-10 00:02 | ER Document Report ---
ED General - General Chief Complaint: Pelvic Pain Stated Complaint: PELVIC CRAMPING Time Seen by Provider: 10/09/17 18:59 TRAVEL OUTSIDE OF THE [place] IN LAST 30 DAYS: No - HPI Patient complains to provider of: Abdominal cramping pelvic pain Notes: Patient coming in approximate 6 weeks is states she is having abdominal cramping. Patient has not followed up with [employer] or had an official ultrasound. Denies any dysuria vaginal bleeding vaginal discharge. Resting comfortably upon my evaluation. Denies abdominal trauma denies fevers chills nausea vomiting diarrhea - Related Data Allergies/Adverse Reactions: No Known Allergies Allergy (Verified 07/03/17 15:21) Past Medical History - Social History Smoking Status: Former Smoker Frequency of alcohol use: None Drug Abuse: None Family History: Reviewed & Not Pertinent Patient has suicidal ideation: No Patient has homicidal ideation: No Pulmonary Medical History: Reports: Hx Asthma Renal/ Medical History: Denies: Hx Peritoneal Dialysis - Immunizations Hx Diphtheria, Pertussis, Tetanus Vaccination: Yes Review of Systems - Review of Systems Constitutional: No symptoms reported EENT: No symptoms reported Cardiovascular: No symptoms reported Respiratory: No symptoms reported Gastrointestinal: Abdominal pain Genitourinary: No symptoms reported Female Genitourinary: No symptoms reported Musculoskeletal: No symptoms reported Skin: No symptoms reported Hematologic/Lymphatic: No symptoms reported Neurological/Psychological: No symptoms reported -: Yes All other systems reviewed and negative Physical Exam - Vital signs Vitals: Temp Pulse Resp BP Pulse Ox 98.1 F 85 18 132/50 H 100 10/09/17 18:28 10/09/17 18:28 10/09/17 18:28 10/09/17 18:28 10/09/17 18:28 Interpretation: Normal - General General appearance: Appears well, Alert - HEENT Head: Normocephalic, Atraumatic Eyes: Normal Pupils: PERRL - Respiratory Respiratory status: No respiratory distress Chest status: Nontender Breath sounds: Normal Chest palpation: Normal - Cardiovascular Rhythm: Regular Heart sounds: Normal auscultation Murmur: No - Abdominal Inspection: Normal Distension: No distension Bowel sounds: Normal Tenderness: Nontender Organomegaly: No organomegaly - Back Back: Normal, Nontender - Extremities General upper extremity: Normal inspection, Nontender, Normal color, Normal ROM , Normal temperature General lower extremity: Normal inspection, Nontender, Normal color, Normal ROM , Normal temperature, Normal weight bearing. No: Shayna's sign - Neurological Neuro grossly intact: Yes Cognition: Normal Orientation: AAOx4 Luanne Coma Scale Eye Opening: Spontaneous [place] Coma Scale Verbal: Oriented Luanne Coma Scale Motor: Obeys Commands [place] Coma Scale Total: 15 Speech: Normal Motor strength normal: LUE, RUE, LLE, RLE Sensory: Normal - Psychological Associated symptoms: Normal affect, Normal mood - Skin Skin Temperature: Warm Skin Moisture: Dry Skin Color: Normal Course - Re-evaluation Re-evalutation: 10/10/17 00:01 I was involved in a pediatric case requiring. The workup lumbar tap lumbar tap became complicated and prolonged is informed by nursing staff after leaving this critical patient that the patient had eloped. The review laboratory studies no critical findings seen. - Vital Signs Vital signs: Temp Pulse Resp BP Pulse Ox 98.1 F 85 18 132/50 H 100 10/09/17 18:28 10/09/17 18:28 10/09/17 18:28 10/09/17 18:28 10/09/17 18:28 - Laboratory Result Diagrams: 10/09/17 19:41 10/09/17 19:41 Laboratory results interpreted by me: 10/09/17 10/09/17 19:41 19:41 Hgb 11.5 L MCV 72 L MCH 22.8 L MCHC 31.8 L RDW 14.3 H Beta HCG, Quant 9412.70 H Discharge - Discharge Clinical Impression: Abdominal pain during Qualifiers: Trimester: first trimester Qualified Code(s): O26.891 - Other specified related conditions, first trimester; R10.9 - Unspecified abdominal pain; R10.9 - Unspecified abdominal pain Disposition: AGAINST MEDICAL ADVICE
== END 2017-10-09 22:41 | disposition left against medical advice (07) ==
LOC: ER 18:14
DX: O26.891 Other specified pregnancy related conditions, first trimester (principal); R10.2 Pelvic and perineal pain; O99.511 Diseases of the respiratory system complicating pregnancy, first trimester; J45.909 Unspecified asthma, uncomplicated; Z3A.00 Weeks of gestation of pregnancy not specified; Z87.891 Personal history of nicotine dependence
CPT/HCPCS: 36415; 76817; 80053; 81001; 83690; 84702; 85025; 99284

== ENCOUNTER 2018-01-12 02:08 | Emergency (ER) | payer BC, MEDICAID ==
[2018-01-12 02:59] LABS: APPEARANCE,URINE CLOUDY; BILIRUBIN,URINE NEGATIVE (NEGATIVE); COLOR,URINE YELLOW; GLUCOSE, URINE NEGATIVE (NEGATIVE); KETONES,URINE NEGATIVE (NEGATIVE); LEUKOCYTE ESTERASE,URINE SMALL (NEGATIVE); NITRITE,URINE NEGATIVE (NEGATIVE); PROTEIN,URINE NEGATIVE (NEGATIVE); URINE SPECIFIC GRAVITY 1.021; UROBILINOGEN,URINE NEGATIVE mg/dL (<2.0)
--- NOTE | 2018-01-12 05:26 | RADIOLOGY REPORT (SQ) ---
EXAM DESCRIPTION: US LIMITED COMPLETED DATE/TME: 01/12/2018 03:58 CLINICAL HISTORY: 32 years, Female, evaluate well being, placenta, cervix LMP: 08/31/2017 COMPARISON: None. TECHNIQUE: Limited second trimester obstetrical ultrasound. FINDINGS: Cervix: 3.4 cm and closed. position: Vertex. LVP: 4.2 cm. heart rate 1 49 bpm. Placenta location: Posterior and low-lying. Inferior tip of the placenta is 1.9 cm from the internal cervical os. IMPRESSION: 1. Single live intrauterine with heart rate of 149 bpm. 2. The cervix is 3.4 cm and closed. 3. Low lying placenta. 2011 [employer]- All Rights Reserved
--- NOTE | 2018-01-12 05:31 | ER Document Report ---
ED General - General Chief Complaint: Vaginal Bleeding Stated Complaint: VAGINAL BLEEDING Time Seen by Provider: 01/12/18 03:53 Mode of Arrival: Ambulatory Information source: Patient Notes: Patient is a 32-year-old female who presents with chief complaint of vaginal bleeding. Patient reports that she is approximately 19 weeks and that just prior to arrival she had a small amount of dark red blood from her vagina. Patient reports that the bleeding has now completely resolved. Patient denies any complications with this . Patient denies any other past medical history. TRAVEL OUTSIDE OF THE [place] IN LAST 30 DAYS: No - Related Data Allergies/Adverse Reactions: aspirin Allergy (Verified 01/12/18 02:18) Past Medical History - General Information source: Patient - Social History Smoking Status: Never Smoker Frequency of alcohol use: None Drug Abuse: None Lives with: Spouse/Significant other Family History: Reviewed & Not Pertinent Patient has suicidal ideation: No Patient has homicidal ideation: No Pulmonary Medical History: Reports: Hx Asthma Renal/ Medical History: Denies: Hx Peritoneal Dialysis Surgical Hx: Negative - Immunizations Immunizations up to date: Yes Hx Diphtheria, Pertussis, Tetanus Vaccination: Yes Review of Systems - Review of Systems Constitutional: No symptoms reported EENT: No symptoms reported Cardiovascular: No symptoms reported Respiratory: No symptoms reported Gastrointestinal: No symptoms reported Genitourinary: No symptoms reported Female Genitourinary: See HPI Musculoskeletal: No symptoms reported Skin: No symptoms reported Hematologic/Lymphatic: No symptoms reported Neurological/Psychological: No symptoms reported Physical Exam - Vital signs Vitals: Temp Pulse Resp BP Pulse Ox 98.7 F 92 18 121/51 L 98 01/12/18 02:29 01/12/18 02:29 01/12/18 02:29 01/12/18 02:29 01/12/18 02:29 - Notes Notes: PHYSICAL EXAMINATION: GENERAL: Well-appearing, well-nourished and in no acute distress. HEAD: Atraumatic, normocephalic. EYES: Pupils equal round and reactive to light, extraocular movements intact, conjunctiva are normal. ENT: Nares patent, oropharynx clear without exudates. Moist mucous membranes. NECK: Normal range of motion, supple without lymphadenopathy LUNGS: Breath sounds clear to auscultation bilaterally and equal. No wheezes rales or rhonchi. HEART: Regular rate and rhythm without murmurs ABDOMEN: Soft, nontender, nondistended abdomen. No guarding, no rebound. No masses appreciated. Female : deferred Musculoskeletal: Normal range of motion, no pitting or edema. No cyanosis. NEUROLOGICAL: Cranial nerves grossly intact. Normal speech, normal gait. Normal sensory, motor exams PSYCH: Normal mood, normal affect. SKIN: Warm, Dry, normal turgor, no rashes or lesions noted. Course - Re-evaluation Re-evalutation: Patient is a 32-year-old female who presents with complaints of isolated episode of vaginal bleeding. Patient reports that this was dark red. Patient reports that she is 19 weeks . Patient reports normal movement. Patient denies any pain, cramping, fever, urinary symptoms or any other concerns. Will send patient for transabdominal ultrasound to evaluate for well-being, placenta placement as well as cervical evaluation. Ultrasound reveals normal intrauterine . Cervix is closed. Placenta is low-lying and is located approximately 1.9 cm away from the cervical opening. Patient will be discharged and will have close follow-up with her OB/ [facility]. Patient agrees with this plan of care and continues to have no symptoms nor does she had any vaginal bleeding since arriving to the department. - Vital Signs Vital signs: Temp Pulse Resp BP Pulse Ox 98.3 F 89 16 105/46 L 100 01/12/18 05:49 01/12/18 05:49 01/12/18 05:49 01/12/18 05:49 01/12/18 05:49 - Laboratory Laboratory results interpreted by me: 01/12/18 02:40 Ur Leukocyte Esterase SMALL H Urine HCG, Qual POSITIVE H Discharge - Discharge Clinical Impression: Vaginal bleeding during Condition: Stable Disposition: HOME, SELF-CARE Additional Instructions: Your ultrasound today was normal. Your cervix is closed. Placenta is lying low in close to your cervix. I have enclosed a copy of the ultrasound report for you to take to your [employer]INE. Please return to the emergency department if you experience additional vaginal bleeding or your soaking through more than 1 pad per hour. Referrals: [facility] [Provider Group] - Follow up as needed
[2018-01-12 06:02] VITALS: BP 105/46
== END 2018-01-12 06:02 | disposition home or self-care (01) ==
LOC: ER 02:08
DX: O20.9 Hemorrhage in early pregnancy, unspecified (principal); O44.42 Low lying placenta NOS or without hemorrhage, second trimester; O99.512 Diseases of the respiratory system complicating pregnancy, second trimester; J45.909 Unspecified asthma, uncomplicated; Z3A.19 19 weeks gestation of pregnancy; Z88.6 Allergy status to analgesic agent
CPT/HCPCS: 76815; 81001; 81025; 99284

== ENCOUNTER 2018-05-07 17:40 | Outpatient (CLI) | payer BC, MEDICAID ==
[2018-05-07 18:18] LABS: APPEARANCE,URINE TURBID; BILIRUBIN,URINE NEGATIVE (NEGATIVE); COLOR,URINE AMBER; GLUCOSE, URINE NEGATIVE (NEGATIVE); KETONES,URINE NEGATIVE (NEGATIVE); LEUKOCYTE ESTERASE,URINE MODERATE (NEGATIVE); NITRITE,URINE NEGATIVE (NEGATIVE); PROTEIN,URINE 100 mg/dL (NEGATIVE); URINE SPECIFIC GRAVITY 1.017; UROBILINOGEN,URINE NEGATIVE mg/dL (<2.0)
[2018-05-07 18:31] LABS: URINE AMPHETAMINES SCREEN NEGATIVE; URINE BARBITURATES SCREEN NEGATIVE; URINE BENZODIAZEPINES SCREEN NEGATIVE; URINE COCAINE SCREEN NEGATIVE; URINE MARIJUANA (THC) SCREEN NEGATIVE; URINE METHADONE SCREEN NEGATIVE; URINE PHENCYCLIDINE SCREEN NEGATIVE
--- NOTE | 2018-05-07 18:46 | Non Stress Test Report ---
Non Stress Test Datetime Report Generated by CPN: 05/07/2018 18:46 DEMOGRAPHIC EGA NST: 35.4 INDICATION Indication for Study: Ordered by Provider MONITORING Monitor Explained: Monitor Explained; Test Explained; Patient Verbalized Understanding Time on Monitor: 05/07/2018 17:57 Time off Monitor: 05/07/2018 18:42 NST Duration: 45 NST INTERVENTIONS NST Interventions: None Physician Notified NST: Dr Younger BABY A: [id number] BABY A Movement : Present Contraction Frequency : none FHR Baseline : 150 Accelerations : 15X15 Decelerations : None Variability : Absent - Undetectable NST Review: Meets Criteria for Reactive NST NST Review and Verified By : RYAN Garcia Results: Reactive NST REPORT Report Trigger: Send Report
== END 2018-05-07 18:47 | disposition home or self-care (01) ==
LOC: LC 17:40
PROVIDERS: ATTEND Obstetrics & Gynecology
PROC: 4A1HXCZ Monitoring of Products of Conception, Cardiac Rate, External Approach (ICD-10-PCS; principal; 2018-05-07)
DX: O47.03 False labor before 37 completed weeks of gestation, third trimester (principal); Z3A.35 35 weeks gestation of pregnancy
CPT/HCPCS: 59025; 80307; 81001; 84112

== ENCOUNTER 2018-05-25 14:02 | Outpatient (CLI) | payer BC, MEDICAID ==
--- NOTE | 2018-05-25 15:02 | Non Stress Test Report ---
Non Stress Test Datetime Report Generated by CPN: 05/25/2018 15:01 DEMOGRAPHIC EGA NST: 38.1 INDICATION Indication for Study: Other Indication for Study (NST) Other: repeat NST VITAL SIGNS Temperature - NST: 98.4 Pulse - NST: 87 RESP - NST: 16 NBPSYS NST: 109 NBPDIA NST: 54 MONITORING Monitor Explained: Monitor Explained; Test Explained; Patient Verbalized Understanding Time on Monitor: 05/25/2018 14:18 Time off Monitor: 05/25/2018 14:38 NST Duration: 20 NST INTERVENTIONS NST Interventions: PO Hydration Physician Notified NST: P. Quintanilla, CNM BABY A: [id number] BABY A Movement : Present Contraction Frequency : 0 FHR Baseline : 135 Accelerations : 15X15 Decelerations : None Variability : Moderate 6-25bpm NST Review: Meets Criteria for Reactive NST NST Review and Verified By : Earline Camp RNC NST Results: Reactive NST REPORT Report Trigger: Send Report
== END 2018-05-25 14:52 | disposition home or self-care (01) ==
LOC: LC 14:02
PROVIDERS: ATTEND Obstetrics & Gynecology Gynecology
PROC: 4A1HXCZ Monitoring of Products of Conception, Cardiac Rate, External Approach (ICD-10-PCS; principal; 2018-05-25)
DX: O36.8130 Decreased fetal movements, third trimester, not applicable or unspecified (principal); Z3A.38 38 weeks gestation of pregnancy
CPT/HCPCS: 59025

== ENCOUNTER 2018-06-07 13:56 | Inpatient (IN) | payer BC, MEDICAID ==
[2018-06-08 18:51] LABS: APPEARANCE,URINE CLOUDY; BILIRUBIN,URINE NEGATIVE (NEGATIVE); COLOR,URINE YELLOW; GLUCOSE, URINE NEGATIVE (NEGATIVE); KETONES,URINE NEGATIVE (NEGATIVE); LEUKOCYTE ESTERASE,URINE SMALL (NEGATIVE); NITRITE,URINE NEGATIVE (NEGATIVE); PROTEIN,URINE 30 mg/dL (NEGATIVE); URINE SPECIFIC GRAVITY 1.025
[2018-06-08 18:54] LABS: ABSOLUTE BASOPHILS # (AUTO) 0.1 10^3/uL (0.0-0.2); ABSOLUTE EOSINOPHILS # (AUTO) 0.1 10^3/uL (0.0-0.6); ABSOLUTE LYMPHOCYTES (AUTO) 1.4 10^3/uL (0.5-4.7); ABSOLUTE MONOCYTES (AUTO) 0.8 10^3/uL (0.1-1.4); ABSOLUTE NEUT (AUTO) 6.8 10^3/uL (1.7-8.2); BASOPHILS % (AUTO) 0.6 % (0-2); EOSINOPHILS % (AUTO) 0.6 % (0-6); HEMATOCRIT 32.6 % (36.0-47.0); HEMOGLOBIN 10.4 g/dL (12.0-15.5); LYMPHOCYTES % (AUTO) 15.7 % (13-45); MEAN CORPUSCULAR HEMOGLOBIN 22.7 pg (27.0-33.4); MEAN CORPUSCULAR VOLUME 71 fl (80-97); MONOCYTES % (AUTO) 8.7 % (3-13); PLATELET COUNT 232 10^3/uL (150-450); RED BLOOD COUNT 4.59 10^6/uL (3.72-5.28); RED CELL DISTRIBUTION WIDTH 15.4 % (11.5-14.0); SEGMENTED NEUTROPHILS % (AUTO) 74.4 % (42-78); TOTAL CELLS COUNTED % (AUTO) 100 %; WHITE BLOOD COUNT 9.1 10^3/uL (4.0-10.5)
[2018-06-08 19:08] LABS: URINE AMPHETAMINES SCREEN NEGATIVE; URINE BARBITURATES SCREEN NEGATIVE; URINE BENZODIAZEPINES SCREEN NEGATIVE; URINE COCAINE SCREEN NEGATIVE; URINE MARIJUANA (THC) SCREEN NEGATIVE; URINE METHADONE SCREEN NEGATIVE; URINE PHENCYCLIDINE SCREEN NEGATIVE
[2018-06-08] MEDS ORDERED: DINOPROSTONE 10 MG VAGINAL INSERT.SR ONE (19:21)
[2018-06-08] MEDS ORDERED: DINOPROSTONE 10 MG VAGINAL INSERT.SR PV ONE (19:23)
--- NOTE | 2018-06-08 19:26 | Admission Physical ---
Datetime Report Generated by CPN: 06/08/2018 19:26 CURRENT ADMISSION Chief Complaint: Other Chief Complaint Other: IUGR Indication for Induction: IUGR Admit Impression : Term, Intrauterine ; Intact Membranes; Induction of Labor Admit Plan: Admit to Unit; Initiate Labor Induction Protocol ALLERGIES Medication Allergies: No Medication Allergies: No Known Allergies (06/07/2018) Latex: No Latex Allergies Food Allergies: n/a Environmental Allergies: n/a OBSTETRICAL HISTORY EDC: 06/07/2018 00:00 : 2 Para: 0 Term: 0 : 0 SAB: 1 IAB: 0 Ectopic: 0 Livin Cesareans: 0 VBACs: 0 Multiple Births: 0 Gestational Diabetes: No Rh Sensitization: No Incompetent Cervix: No PRISCILLA: No Infertility: No ART Treatment: No Uterine Anomaly: No IUGR: No Hx Previous C/S: No Macrosomia: No Hx Loss/Stillborn: No PIH: No Hx : No Placenta Previa/Abruption: No Depression/PP Depression: No PTL/PROM: No Post Hemorrhage: No Current Procedures: Ultrasound Obstetrical History Comments: G1- SAB G2- current SEE RECORDS Alcohol: No Marijuana : No Cocaine: No Other Illicit Drugs: No Cigarettes: Never Smoker. [id number] MEDICAL HISTORY Diabetes: No Blood Transfusion: No Pulmonary Disease (Asthma, TB): No Breast Disease: No Hypertension: No Mold Runner Surgery: No Heart Disease: No Hosp/Surgery: No Autoimmune Disorder: No Anesthetic Complications: No Kidney Disease: No Abnormal Pap Smear: No Neuro/Epilepsy: No Psychiatric Disorders: No Other Medical Diseases: No Hepatitis/Liver Disease: No Significant Family History: No Varicosities/Phlebitis: No Trauma/Violence : No Thyroid Dysfunction: No INFECTIOUS HISTORY Gonorrhea: No Genital Herpes: No Chlamydia: No Tuberculosis: No Syphilis: No Hepatitis: No HIV/AIDS Exposure: No Rash or Viral Illness: No HPV: No PHYSICAL EXAM General: Normal HEENT: Normal Neurologic: Normal Thyroid: Normal Heart: Normal Lungs: Normal Breast: Normal Back: Normal Abdomen: Normal Genitourinary Exam: Normal Extremities: Normal DTRs: Normal Pelvic Type: Adequate MEMBRANES Membranes: Intact FETUS A EGA: 40.1 Monitoring: External US FHR- Baseline: 130 Variability: Moderate 6-25bpm Decelerations: None FHR Category: Category I PLANS FOR LABOR AND DELIVERY Labor and Delivery: Plan Pain Management: Medications; Epidural Feeding Preference: Breast Benefit of Breast Feed Discussed: Yes Circumcision: Yes INFORMED CONSENT Signature: with User ID: [email or web address]
[2018-06-08] MEDS ORDERED: RINGERS SOLUTION,LACTATED 1,000 ML IV PRN (19:28)
[2018-06-09] MEDS ORDERED: ZOLPIDEM TARTRATE 5 MG TABLET PO ONE (01:45)
[2018-06-09] MEDS ORDERED: ZOLPIDEM TARTRATE 5 MG TABLET ONE (01:46)
[2018-06-09] MEDS ORDERED: LIDOCAINE 1% INJ-PF (10 MG/ML) 30 ML SDV ONE (09:27)
[2018-06-09] MEDS ORDERED: MISOPROSTOL 0.2 MG TABLET ONE (09:27)
[2018-06-09] MEDS ORDERED: OXYTOCIN/NORMAL SALINE 20 UNIT/1,000 ML RTUINJ ONE (09:27)
[2018-06-09 12:37] LABS: CHLAM PCR NOT DETECTED (NOT DETECT); GON PCR NOT DETECTED (NOT DETECT)
[2018-06-09] MEDS ORDERED: EPHEDRINE SULFATE INJ 50 MG/1 ML AMPULE ONE (13:28)
[2018-06-09] MEDS ORDERED: FENTANYL/BUPIVACAINE/NS/PF 300 MCG/150 ML RTUINJ EPI ONE (13:28)
[2018-06-09] MEDS ORDERED: BUPIVACAINE HCL 0.5 % INJ/PF 30 ML SDV ONE (13:28)
[2018-06-09] MEDS ORDERED: ONDANSETRON HCL INJ/PF 4 MG/2 ML SDV ONE (13:37)
[2018-06-09] MEDS ORDERED: ONDANSETRON HCL INJ/PF 4 MG/2 ML SDV IV ONE (14:00)
--- NOTE | 2018-06-09 20:08 | L&D Progress Notes ---
PROGRESS NOTES Datetime Report Generated by CPN: 06/09/2018 20:08 PROGRESS NOTE Impression: Normal Progression of Labor Procedures: Intrauterine Pressure Catheter; Scalp Electrode; Amnio Infusion Plan: Continue Present Management Vital Signs : Reviewed; Within Normal Limits Comment: Pt comfortable. Minimal cervical change. Variable decels. FSE and IUPC placed. Employing position changes. Will try an amnioinfusion. VAGINAL EXAM Dilatation: 4 Effacement: 90-100 Station: -3 Contractions: q 1-3 LAST VAGINAL EXAM-NURSING Dilitation: 4.0 Dilitation: 4.0 Dilitation: 3.0 Dilitation: 1.5 Dilitation: 1.0 Dilitation: 0.0 Effacement: 90 Effacement: 70 Effacement: 80 Effacement: 70 Effacement: 70 Effacement: 0 Station: -3 Station: -2 Station: -2 Station: -1 Station: -1 Station: -3 Contractions: RN at bedside, palpates contractions, abdomen soft in between contraction. Contractions: RN at bedside troubleshooting monitor Contractions: RN at bedside, pt sleeping through contractions, pt states can not feel contractions. RN palpates abdomen to be soft. Biomotiii system picking up pt movement. Pt perineum free of vaginal bleeding. MEMBRANES Membranes: Intact FETUS A FHR - Baseline: 130s Monitoring: Internal Scalp Electrode Variability: Moderate 6-25bpm Accelerations: 10X10 Decelerations: Variable FHR Category: Category II FHR Comments: variable decels with most contractions currently : 40.2 : 39.0 SIGNATURE SIGNATURE: 10,[id number];14,[id number];13,[id number] SIGNATURE: 13,[id number];14,[id number] SIGNATURE: [id number] SIGNATURE: 14,[id number] SIGNATURE: [id number] Signature: with User ID: [email or web address]
[2018-06-09] MEDS ORDERED: CEFAZOLIN 2 GM/D5W RTU 2 GM/50 ML RTUPB IV ONE (20:48)
[2018-06-09] MEDS ORDERED: CITRIC ACID/SODIUM CITRATE ORAL SOLN 15 ML UDCUP ONE (20:48)
--- NOTE | 2018-06-09 20:52 | L&D Progress Notes ---
PROGRESS NOTES Datetime Report Generated by CPN: 06/09/2018 20:52 PROGRESS NOTE Impression: Non-reassuring Heart Rate Procedures: Amnio Infusion Procedures- Other: position changes Plan: Deliver- Section Informed Consent Obtained: Section Delivery Vital Signs : Reviewed; Within Normal Limits Comment: Will proceed with primary low transverse C/S. Persistant variable decels inspite of position changes, pitocin off and amnioinfusion. Pt is remote from delivery and has an IUGR fetus. I explained to her that this small baby will have less reserve and the best route of delivery is a C/S. She is agreeable to this plan. VAGINAL EXAM Dilatation: 5 Effacement: 100 Station: -3 Contractions: q 4 Dilitation: 5.0 MEMBRANES Membranes: Ruptured FETUS A FHR - Baseline: 120s Monitoring: Internal Scalp Electrode Accelerations: 10X10 Decelerations: Variable FHR Category: Category II FHR Comments: persistant variable decels w/amnioinfusion, pit off, position chgs : 40.2 FETUS C SIGNATURE: [id number];14,[id number];10,[id number] Signature: with User ID: [email or web address]
[2018-06-09] MEDS ORDERED: LIDOCAINE 2% INJ-PF (20 MG/ML) 10 ML AMPUL ONE ×2 (20:53→21:36)
[2018-06-09] MEDS ORDERED: FENTANYL CITRATE INJ/PF 100 MCG/2 ML AMPUL ONE ×3 (20:54→21:37)
[2018-06-09] MEDS ORDERED: MORPHINE SULFATE 10 MG/ML INJ ONE (20:57)
[2018-06-09] MEDS ORDERED: MIDAZOLAM 2 MG/2 ML INJ ONE (20:57)
[2018-06-09] MEDS ORDERED: OXYTOCIN 10 UNIT/ML VIAL ONE (20:58)
--- NOTE | 2018-06-09 22:20 | PDOC DELIVERY SUMMARY ---
Delivery Summary - Maternal Hx # Term Pregnancies: 0 Number of Living Children: 0 ELVER: 06/07/18 Risk Factors: Other - IUGR Ruptured Membranes: AROM Fluids: Clear - Delivery Labor: Not In Labor, Induction Presentation: Vertex Heart Rate Monitoring: Internally Uterine Contraction Monitoring: Internal Pattern: Variable Decels Support Person Present: Yes Location: LD : Primary - Urgent Placenta: Within Normal Limits Placenta Description: Appeared normal Number of Vessels (Cord): 3 Nuchal Cord: No Estimated Blood Loss: 800 ml Delivery Quantitative Blood Loss (QBL): 800 - Medications Type of Anesthesia:: Epidural - Delivery Personnel MD: SANTI REDDING
--- NOTE | 2018-06-09 22:27 | Operative Report ---
Operative Report DATE OF SURGERY: 06/09/18 PREOPERATIVE DIAGNOSIS: 1. Uterine at 40-2/7 weeks. 2. IUGR. 3. Category 2 heart tones. 4. Beta strep negative. 5. Rh+. 6. Rubella immune POSTOPERATIVE DIAGNOSIS: Same OPERATION: Urgent primary low transverse section SURGEON: SANTI JEAN ANESTHESIA: Epidural TISSUE REMOVED OR ALTERED: Placenta COMPLICATIONS: None ESTIMATED BLOOD LOSS: 800 ml INTRAOPERATIVE FINDINGS: Male in a cephalic position; normal appearing placenta; normal uterus, tubes and ovaries PROCEDURE: The patient was taken to the operating room where epidural anesthesia was obtained and found to be adequate. She was then prepped and draped in the normal sterile fashion and placed in the dorsal supine position with a leftward tilt. A Pfannenstiel skin incision was then made and carried through to the underlying layers of the fascia with the scalpel. The fascia was incised in the midline and the incision extended laterally with the Au scissors. The superior aspect of the fascial incision was then grasped with Abbie clamps elevated and the underlying rectus muscles dissected off [bluntly and sharply]. Attention was then turned to the inferior aspect of the fascial incision which in a similar fashion was grasped, tented up with Abbie clamps, and the rectus muscles dissected off [bluntly]. The rectus muscles were then in the midline and the peritoneum at the amount identified and entered [bluntly and sharply]. The peritoneal incision was then extended superiorly and inferiorly with good visualization of the bladder. The bladder blade was inserted and the vesicouterine peritoneum identified grasped with Mongolian pickups and entered sharply with the Metzenbaum scissors. This incision was then extended laterally with the Metzenbaum scissors and a bladder flap created digitally. The bladder blade was then reinserted and the lower uterine segment incised in a transverse fashion with the scalpel. The uterine incision was then extended bluntly. The bladder blade was removed and the infant's head was delivered from cephalic presentation atraumatically with the assistance of the vacuum. The nose and mouth were suctioned and the cord doubly clamped and cut. And the infant was handed off to waiting pediatricians. The placenta was then delivered manually and the uterus was cleared of all clots and debris. The uterine incision was then repaired with 0 Vicryl in a running locked fashion. A second layer using 0 chromic was used to obtain hemostasis via imbrication of the initial layer. The bladder flap was then repaired with 3-0 Vicryl in a running fashion. The uterus was returned to the patient's abdomen and Interceed was placed overlying the uterine incision, as well as a piece vertically placed on the anterior surface of the uterus, to prevent adhesions. The gutters were cleared of all clots and debris. All operative sites were noted to be hemostatic. The fascia was reapproximated with 0 Vicryl in a running fashion from each lateral edge to the midline. Subcutaneous fat layer was then closed in an interrupted fashion with 3-0 Vicryl. The skin was closed with 4-0 Monocryl in a running subcuticular fashion. The patient tolerated the procedure well. Sponge lap needle and instrument counts are correct x 2. 2 g of Ancef were given prior to skin incision. The patient was taken to the recovery area awake and in stable condition.
[2018-06-09] MEDS ORDERED: PROMETHAZINE HCL INJ 25 MG/1 ML VIAL IV PRN (22:32)
[2018-06-09] MEDS ORDERED: OXYTOCIN/NORMAL SALINE 20 UNIT/1,000 ML RTUINJ IV PRN (22:32)
[2018-06-09] MEDS ORDERED: ACETAMINOPHEN 325 MG TABLET PO PRN (22:32)
[2018-06-09] MEDS ORDERED: RINGERS SOLUTION,LACTATED 1,000 ML IV PRN (22:32)
[2018-06-09] MEDS ORDERED: OXYCODONE-ACETAMINOPHEN 5-325 MG TABLET PO PRN (22:32)
[2018-06-09] MEDS ORDERED: SIMETHICONE 80 MG TAB.CHEW PO PRN (22:32)
[2018-06-09] MEDS ORDERED: DIPH/PERTUSS(ACELL)/TETANUS VAC/PF 0.5 ML SYR (>=10YO) IM PRN (22:32)
[2018-06-09] MEDS ORDERED: ACETAMINOPHEN 1,000 MG/100 ML RTUPB IV PRN (22:32)
[2018-06-09] MEDS ORDERED: KETOROLAC TROMETHAMINE INJ/PF 30 MG/1 ML SDV ONE (22:47)
[2018-06-09] MEDS ORDERED: ACETAMINOPHEN 1,000 MG/100 ML RTUPB IV ONE (22:52)
[2018-06-09] MEDS ORDERED: HYDROMORPHONE HCL INJ/PF 2 MG/ML AMPULE ONE (23:51)
[2018-06-09] MEDS: HYDROMORPHONE HCL INJ/PF 2 MG/ML AMPULE IV PRN (23:54)
--- NOTE | 2018-06-10 01:14 | Delivery Summary ---
Del Sum A-C Datetime Report Generated by CPN: 06/10/2018 01:13 DELIVERY PERSONNEL DELIVERY PERSONNEL: [id number] Delivery Doctor:: Amy Ratliff MD Anesthesiologist:: Can Aguilera MD INDUSTRIAL MANUFACTURING TECHNICIAN:: Jamil Christina CRNA Librarian Special Library:: Elizabeth Reyes RN Neonatal Nurse Practitioner:: CASSIUS Laura Nursery Nurse:: Candi Johnson RN Grinding Supervisor/POWERHOUSE ELECTRICIAN: ST Sukhwinder Grinding Supervisor/POWERHOUSE ELECTRICIAN: Cristela Bentley, ST MATERNAL INFORMATION Delivery Anesthesia: Epidural Medications After Delivery: Pitocin Drip 20 Units/1000ml NSS Maternal Complications: None LABOR SUMMARY EDC: 06/07/2018 00:00 No. Babies in Womb: 1 Attempted: No Labor Anesthesia: Epidural LABOR INFORMATION Reason for Induction: Intrauterine Growth Retardation Onset of Labor: 06/09/2018 14:15 Cervical Ripening Agents: Cervidil Oxytocin: Induction Group B Beta Strep: Negative Antibiotics # of Doses: 0 Steroids Given: None Reason Steroids Not Administered: Not Applicable MEMBRANES Membranes Rupture Method: Spontaneous Rupture of Membranes: 06/09/2018 14:15 Length of Rupture (hr): 7.23 Amniotic Fluid Color: Bloody Amniotic Fluid Amount: Small Amniotic Fluid Odor: Normal STAGES OF LABOR Stage 3 hr: 0 Stage 3 min: 0 Total Time in Labor hr: 7 Total Time in Labor min: 14 CSECTION DELIVERY Primary Indication: Nonreassuring Status CSection Urgency: Non-Scheduled CSection Incidence: Primary Labor: Labor Elective: Nonelective CSection Incision: Lower Uterine Transverse BABY A INFORMATION Delivery Date/Time: 06/09/2018 21:29 Method of Delivery: Born in Route : No : N/A Forceps: N/A Vacuum Extraction: N/A Shoulder Dystocia : No PRESENTATION/POSITION BABY A Presentation: Cephalic Cephalic Presentation: Vertex Breech Presentation: N/A PLACENTA INFORMATION BABY A Placenta Delivery Time : 06/09/2018 21:29 Placenta Method of Delivery: Manual Removal Placenta Status: Delivered SCORES BABY A Heart Rate 1 min: >100 bpm Resp Effort 1 min: Good Cry Reflex Irritability 1 min: Cough or Sneeze or Pulls Away Muscle Tone 1 min: Active Motion Color 1 min: Body [place], Extremities Blue SCORE 1 MIN: 9 Heart Rate 5 min: >100 bpm Resp Effort 5 min: Good Cry Reflex Irritability 5 min: Cough or Sneeze or Pulls Away Muscle Tone 5 min: Active Motion Color 5 min: Body [place], Extremities Blue SCORE 5 MIN: 9 INFORMATION BABY A Gestational Age at Delivery: 40.2 Gestational Status: Full Term- 39- 40.6 Weeks Infant Outcome : Liveborn Condition : Stable Infant Sex: Male IDENTIFICATION BABY A Infant Verification Date/Time: 06/09/2018 22:33 ID Band Number: [id number] Mother's Name Verified: Yes RN Verifying : Pranay RN/ MikeyLopez RN WEIGHT/LENGTH BABY A Infant Birthweight (gm): 2945 Infant Weight (lb): 6 Weight (oz): 8 Infant Length (in): 20.00 Infant Length (cm): 50.80 CORD INFORMATION BABY A No. Cord Vessels: 3 Nuchal Cord : N/A Cord Blood Taken: Yes-For Eval (Mom's Blood Type - or O+) Suction: Mouth; Nose ASSESSMENT BABY A Infant Complications: Multiple Late Decels; Multiple Variable Decels Physical Findings- Other: initial assessment to bed performed by provider and nursery RN who is at bedside Infant Respirations: Appears Normal Skin to Skin: Yes Commissioner Of Internal Revenue/ALS Called : Yes Care By: Saroj Johnson, DIDACTIC INSTRUCTOR Transferred To: [facility] BABY B INFORMATION : N/A
[2018-06-10] MEDS: IBUPROFEN 800 MG TABLET PO SCH ×5 (01:44→23:26)
[2018-06-10] MEDS: OXYCODONE-ACETAMINOPHEN 5-325 MG TABLET PO PRN ×2 (02:14→19:26)
[2018-06-10] MEDS: HYDROMORPHONE HCL INJ/PF 2 MG/ML AMPULE IV PRN ×2 (03:32→12:20)
[2018-06-10] MEDS: KETOROLAC TROMETHAMINE INJ/PF 30 MG/1 ML SDV IV SCH ×3 (05:27→22:01)
[2018-06-10 06:21] LABS: HEMATOCRIT 25.6 % (36.0-47.0); HEMOGLOBIN 8.4 g/dL (12.0-15.5); MEAN CORPUSCULAR HEMOGLOBIN 23.2 pg (27.0-33.4); MEAN CORPUSCULAR VOLUME 71 fl (80-97); PLATELET COUNT 153 10^3/uL (150-450); RED BLOOD COUNT 3.62 10^6/uL (3.72-5.28); RED CELL DISTRIBUTION WIDTH 15.5 % (11.5-14.0)
[2018-06-10] MEDS ORDERED: IRON SUCROSE COMPLEX INJ/PF 100 MG/5 ML SDV IV ONE (09:00)
[2018-06-10] MEDS: PRENATAL VITAMIN W DHA CAPSULE PO SCH (09:29)
[2018-06-10] MEDS: DOCUSATE SODIUM 100 MG CAPSULE PO SCH ×2 (09:29→18:35)
[2018-06-10] MEDS ORDERED: ALBUTEROL SULFATE 0.083% NEB 2.5 MG/3 ML AMPUL NEB ONE ×2 (09:50→09:57)
[2018-06-10] MEDS ORDERED: DIPHENHYDRAMINE HCL 50 MG CAPSULE PO ONE (09:52)
--- NOTE | 2018-06-10 10:22 | PDOC PROGRESS REPORT ---
Subjective-OB Progress Note for:: 06/10/18 Subjective: bleeding is small, c/o abd pain and right upper chest pain with onset of iron infusion, iron infusion stopped, nebulizer ordered and dr hoover notified. benadryl ordered and pt encouraged to notify nurse if CP persists Physical Exam (OB) Vital Signs: Temp Pulse Resp BP Pulse Ox 98.3 F 113 H 16 117/58 L 97 06/10/18 07:53 06/10/18 10:03 06/10/18 10:03 06/10/18 07:53 06/10/18 10:03 Intake & Output 06/09/18 06/10/18 06/11/18 06:59 06:59 06:59 Intake Total 100 Output Total 350 Balance -250 Weight 85 kg - Dressing Removed: - opsite dressing in place; elasticon dressing removed Incision: Dressing, Draining - small blood, Well Approximated - Lochia Lochia Amount: Small 10-25 ml Lochia Color: Rubra/Red - Abdomen Description: Tender, Soft Hernia Present: No Fundal Description: Firm, Midline Fundal Height: u/u - u/2 - Respiratory Breath sounds: Wheezing - throughout - Extremities Calf: Normal, Nontender Objective-Diagnostic Laboratory: 06/10/18 06:06 06/10/18 06:06 WBC 10.0 RBC 3.62 L Hgb 8.4 L Hct 25.6 L MCV 71 L MCH 23.2 L MCHC 33.0 RDW 15.5 H Plt Count 153 Assessment and Plan(PN) - Assessment and Plan (1) Drug abuse during Is this a current diagnosis for this admission?: Yes (2) S/P primary low transverse Is this a current diagnosis for this admission?: Yes - Time Spent with Patient Time with patient: 15-25 minutes - Disposition Anticipated Discharge: Home Within: within 48 hours
[2018-06-11] MEDS: OXYCODONE-ACETAMINOPHEN 5-325 MG TABLET PO PRN ×3 (03:17→21:15)
[2018-06-11] MEDS: IBUPROFEN 800 MG TABLET PO SCH ×3 (05:40→17:18)
--- NOTE | 2018-06-11 09:23 | PDOC DISCHARGE SUMMARY ---
Final Diagnosis Discharge Date: 06/11/18 - Final Diagnosis (1) Drug abuse during Is this a current diagnosis for this admission?: Yes (2) S/P primary low transverse Is this a current diagnosis for this admission?: Yes (3) Iron adverse reaction Is this a current diagnosis for this admission?: Yes Discharge Data - Discharge Medication Prescriptions: Ibuprofen [Motrin 800 mg Tablet] 800 mg PO Q8HP PRN #90 tablet PRN Reason: Oxycodone HCl/Acetaminophen [Percocet 5-325 mg Tablet] 1 tab PO Q4HP PRN #30 tablet PRN Reason: Home Medications: Vit,Calc76/Iron/Folic [Prenatabs Rx Tablet] 1 tab PO DAILY 05/07/18 Ibuprofen [Motrin 800 mg Tablet] 800 mg PO Q8HP PRN #90 tablet 06/11/18 Oxycodone HCl/Acetaminophen [Percocet 5-325 mg Tablet] 1 tab PO Q4HP PRN #30 tablet 06/11/18 Reason(s) for Admission: Induction of Labor Procedures: NST Intrapartum Procedure(s): : Low Cervical, Transverse - Diagnosis Test Laboratory: Temp Pulse Resp BP Pulse Ox 98.1 F 89 16 113/58 L 93 06/11/18 07:35 06/11/18 07:35 06/11/18 07:35 06/11/18 07:35 06/11/18 07:35 06/08/18 06/08/18 06/10/18 18:06 18:34 06:06 RBC 4.59 3.62 L Hgb 10.4 L 8.4 L Hct 32.6 L 25.6 L Urine Opiates Screen UNCONFIRMED POSITIVE - Discharge information/Instructions Discharge Activity: Balance Activity w/Rest, No Lifting Over 10 Pounds, No Lifting/Push/Pulling, Pelvic Rest, No tub bath Discharge Diet: Regular Disposition: HOME, SELF-CARE Follow up with: [facility] in: 1, Weeks
--- NOTE | 2018-06-11 09:26 | PDOC PROGRESS REPORT ---
Subjective-OB Progress Note for:: 06/11/18 Subjective: feeling better, denies complaints, CP resolved Physical Exam (OB) Vital Signs: Temp Pulse Resp BP Pulse Ox 98.1 F 89 16 113/58 L 93 06/11/18 07:35 06/11/18 07:35 06/11/18 07:35 06/11/18 07:35 06/11/18 07:35 Intake & Output 06/10/18 06/11/18 06/12/18 06:59 06:59 06:59 Intake Total 100 1300 Output Total 350 1400 Balance -250 -100 - Dressing Removed: No Incision: Dressing, Well Approximated Closure Type: OPSITE - Abdomen Description: Soft Hernia Present: No Fundal Description: Firm Fundal Height: u/u - u/2 - Respiratory Respiratory Status: No respiratory distress Breath sounds: Clear - thorughout - Abdominal Inspection: Normal Distension: No distension Tenderness: Nontender Objective-Diagnostic Laboratory: 06/10/18 06:06 Assessment and Plan(PN) - Assessment and Plan (1) Drug abuse during Is this a current diagnosis for this admission?: Yes (2) S/P primary low transverse Is this a current diagnosis for this admission?: Yes (3) Iron adverse reaction Is this a current diagnosis for this admission?: Yes - Time Spent with Patient Time with patient: Less than 15 minutes - Disposition Anticipated Discharge: Home - today
[2018-06-11] MEDS: PRENATAL VITAMIN W DHA CAPSULE PO SCH (09:29)
[2018-06-11] MEDS: DOCUSATE SODIUM 100 MG CAPSULE PO SCH ×2 (09:29→17:19)
[2018-06-12] MEDS: IBUPROFEN 800 MG TABLET PO SCH ×3 (00:10→11:21)
--- NOTE | 2018-06-12 09:19 | PDOC PROGRESS REPORT ---
Subjective-OB Progress Note for:: 06/12/18 Subjective: Ready to go home. Physical Exam (OB) Vital Signs: Temp Pulse Resp BP Pulse Ox 98.0 F 82 15 123/71 99 06/12/18 07:38 06/12/18 07:38 06/12/18 07:38 06/12/18 07:38 06/12/18 07:38 Intake & Output 06/11/18 06/12/18 06/13/18 06:59 06:59 06:59 Intake Total 1300 466 Output Total 1400 Balance -100 466 - PIH/Pre-Eclampsia Clonus: Negative Headache: Absent Epigastric Pain: No Visual Changes: No - Dressing Removed: Yes Incision: Dressing, Well Approximated Closure Type: OPSITE - Lochia Lochia Amount: Scant < 10 ml Lochia Color: Rubra/Red - Abdomen Description: Soft, Round Hernia Present: No Bowel Sounds: Normoactive Flatus Presence: Present Stool: Yes Fundal Description: Firm, Midline Fundal Height: u/u - u/2 Objective-Diagnostic Laboratory: 06/10/18 06:06 Assessment and Plan(PN) - Disposition Anticipated Discharge: Home - today
[2018-06-12] MEDS: PRENATAL VITAMIN W DHA CAPSULE PO SCH (09:41)
[2018-06-12] MEDS: DOCUSATE SODIUM 100 MG CAPSULE PO SCH (09:41)
--- NOTE | 2018-06-12 09:44 | PDOC DISCHARGE SUMMARY ---
Final Diagnosis Discharge Date: 06/12/18 - Final Diagnosis (1) Anxiety Is this a current diagnosis for this admission?: Yes (2) Drug abuse during Is this a current diagnosis for this admission?: Yes (3) IUGR (intrauterine growth retardation), delivered, current hospitalization Is this a current diagnosis for this admission?: Yes (4) Iron adverse reaction Is this a current diagnosis for this admission?: Yes (5) Is this a current diagnosis for this admission?: Yes (6) S/P primary low transverse Is this a current diagnosis for this admission?: Yes Discharge Data - Discharge Medication Prescriptions: Oxycodone HCl/Acetaminophen [Percocet 5-325 mg Tablet] 1 tab PO Q4HP PRN #30 tablet PRN Reason: Ibuprofen [Motrin 800 mg Tablet] 800 mg PO Q8HP PRN #90 tablet PRN Reason: Ferrous Sulfate 325 mg PO BID #60 tablet. Home Medications: Vit,Calc76/Iron/Folic [Prenatabs Rx Tablet] 1 tab PO DAILY 05/07/18 Ibuprofen [Motrin 800 mg Tablet] 800 mg PO Q8HP PRN #90 tablet 06/11/18 Oxycodone HCl/Acetaminophen [Percocet 5-325 mg Tablet] 1 tab PO Q4HP PRN #30 tablet 06/11/18 Ferrous Sulfate 325 mg PO BID #60 tablet. 06/12/18 Gestational Age: 40.2 wks Reason(s) for Admission: Induction of Labor Procedures: NST, Ultrasound Intrapartum Procedure(s): : Low Cervical, Transverse - [place] Data Baby 1 Male at 1 minute: 9 at 5 minutes: 9 Weight: 2.948 kg Home with Mother: Yes Complications: No - Diagnosis Test Laboratory: Temp Pulse Resp BP Pulse Ox 98.0 F 82 15 123/71 99 06/12/18 07:38 06/12/18 07:38 06/12/18 07:38 06/12/18 07:38 06/12/18 07:38 06/08/18 06/08/18 06/10/18 18:06 18:34 06:06 RBC 4.59 3.62 L Hgb 10.4 L 8.4 L Hct 32.6 L 25.6 L Urine Opiates Screen UNCONFIRMED POSITIVE - Discharge information/Instructions Discharge Activity: Activity As Tolerated, Balance Activity w/Rest, No Lifting Over 10 Pounds, No Lifting/Push/Pulling, Pelvic Rest, Slowly Increase Activity, No tub bath Discharge Diet: Regular Disposition: HOME, SELF-CARE Follow up with: [facility] in: 1, Weeks
[2018-06-12 10:59] VITALS: BP 122/57
== END 2018-06-12 13:58 | disposition home or self-care (01) | DRG 788 ==
LOC: LR 06-08 17:57 → 2S 06-10 00:36
PROVIDERS: ADMIT Obstetrics & Gynecology; ATTEND Obstetrics & Gynecology
PROC: 10D00Z1 Extraction of Products of Conception, Low, Open Approach (ICD-10-PCS; principal; 2018-06-08)
PROC: 4A1H7CZ Monitoring of Products of Conception, Cardiac Rate, Via Natural or Artificial Opening (ICD-10-PCS; 2018-06-08)
PROC: 10H073Z Insertion of Monitoring Electrode into Products of Conception, Via Natural or Artificial Opening (ICD-10-PCS; 2018-06-08)
DX: O76 Abnormality in fetal heart rate and rhythm complicating labor and delivery (principal); O36.5930 Maternal care for other known or suspected poor fetal growth, third trimester, not applicable or unspecified; O99.344 Other mental disorders complicating childbirth; F41.9 Anxiety disorder, unspecified; F19.10 Other psychoactive substance abuse, uncomplicated; T45.4X5A Adverse effect of iron and its compounds, initial encounter; Y92.230 Patient room in hospital as the place of occurrence of the external cause; R07.89 Other chest pain; Z3A.40 40 weeks gestation of pregnancy; Z37.0 Single live birth
CPT/HCPCS: 1961; 36415; 80307; 80361; 81005; 85025; 85027; 86592; 86850; 86900; 86901; 87491; 87591; 88307; 94640; 94799; C1765; J0131; J0690; J1170; J1756; J1885; J2250; J2270; J2405; J2550; J2590; J3010; J3490

== ENCOUNTER 2018-06-07 14:38 | Outpatient (CLI) | payer BC, MEDICAID ==
--- NOTE | 2018-06-07 15:32 | Non Stress Test Report ---
Non Stress Test Datetime Report Generated by CPN: 06/07/2018 15:32 DEMOGRAPHIC EGA NST: 40.0 INDICATION Indication for Study: Intrauterine Growth Restriction VITAL SIGNS Temperature - NST: 98.2 Pulse - NST: 85 RESP - NST: 18 NBPSYS NST: 108 NBPDIA NST: 54 MONITORING Monitor Explained: Monitor Explained; Test Explained; Patient Verbalized Understanding Time on Monitor: 06/07/2018 14:54 Time off Monitor: 06/07/2018 15:28 NST Duration: 34 NST INTERVENTIONS NST Interventions: PO Hydration; Reposition Patient Physician Notified NST: K. Escobar, CNM BABY A: [id number] BABY A Movement : Present Contraction Frequency : occ FHR Baseline : 135 Accelerations : 15X15 Variability : Moderate 6-25bpm NST Review: Meets Criteria for Reactive NST NST Review and Verified By : Mikey Green RN NST Results: Reactive NST REPORT Report Trigger: Send Report
== END 2018-06-07 15:32 | disposition home or self-care (01) ==
LOC: LC 14:38
PROVIDERS: ATTEND Obstetrics & Gynecology
PROC: 4A1HXCZ Monitoring of Products of Conception, Cardiac Rate, External Approach (ICD-10-PCS; principal; 2018-06-07)
DX: O36.5930 Maternal care for other known or suspected poor fetal growth, third trimester, not applicable or unspecified (principal); Z3A.40 40 weeks gestation of pregnancy
CPT/HCPCS: 59025

== ENCOUNTER 2018-06-17 12:35 | Emergency (ER) | payer BC, MEDICAID ==
[2018-06-17] MEDS ORDERED: KETOROLAC TROMETHAMINE INJ/PF 30 MG/1 ML SDV IV ONE (13:02)
[2018-06-17] MEDS ORDERED: NORMAL SALINE 1000 ML 1,000 ML IV ONE (13:02)
--- NOTE | 2018-06-17 13:12 | ER Document Report ---
ED Medical Screen (RME) - General Chief Complaint: Wound Infection Stated Complaint: PAIN Time Seen by Provider: 06/17/18 12:56 Notes: Patient is a 32-year-old female that presents to the emergency department for chief complaint of vaginal bleeding, pain and fever status post . Patient is approximately 1 week , had a fever of 104 F last night, was complaining of vaginal bleeding as well, with clots, and pelvic pain radiating towards the back. ROS: Other than noted above, the 12 point review of systems was reviewed with the patient and were negative, all pertinent findings are included in the HPI. PHYSICAL EXAMINATION: Vital signs reviewed. GENERAL: Well-appearing, well-nourished and in no acute distress. HEAD: Atraumatic, normocephalic. EYES: Pupils equal round extraocular movements intact, conjunctiva are normal. ENT: Nares patent NECK: Normal range of motion CV: Heart regular rate and rhythm LUNGS: No respiratory distress Musculoskeletal: Normal range of motion Abdomen: Mild tenderness to palpation, postsurgical dressing in place, minimal bloody drainage noted on the dressing, not saturated. NEUROLOGICAL: Normal speech PSYCH: Normal mood, normal affect. MDM: Patient seen and examined for rapid initial assessment. Vital signs reviewed. A comprehensive ED assessment and evaluation of the patient, analysis of test results and completion of the medical decision making process will be conducted by additional ED providers. *Note is created using voice recognition software and may contain spelling, syntax or grammatical errors. TRAVEL OUTSIDE OF THE [place] IN LAST 30 DAYS: No - Related Data Allergies/Adverse Reactions: No Known Allergies Allergy (Verified 06/17/18 13:01) Past Medical History - Social History Chew tobacco use (# tins/day): No Frequency of alcohol use: None Drug Abuse: None Family history: None Pulmonary Medical History: Reports: Hx Asthma Renal/ Medical History: Denies: Hx Peritoneal Dialysis Past Surgical History: Reports: Hx Section - Immunizations Immunizations up to date: Yes Hx Diphtheria, Pertussis, Tetanus Vaccination: Yes Physical Exam - Vital signs Vitals: Temp Pulse BP Pulse Ox 97.9 F 64 110/62 100 06/17/18 13:05 06/17/18 13:05 06/17/18 13:05 06/17/18 13:05 Course - Vital Signs Vital signs: Temp Pulse Resp BP Pulse Ox 97.9 F 64 110/62 100 06/17/18 13:05 06/17/18 13:05 06/17/18 13:05 06/17/18 13:05 Doctor's Discharge - Discharge Referrals: SABRA LAU MD [Primary Care Provider] - Follow up as needed
[2018-06-17 13:34] LABS: APPEARANCE,URINE CLOUDY; BILIRUBIN,URINE NEGATIVE (NEGATIVE); COLOR,URINE YELLOW; GLUCOSE, URINE NEGATIVE (NEGATIVE); KETONES,URINE NEGATIVE (NEGATIVE); LEUKOCYTE ESTERASE,URINE LARGE (NEGATIVE); NITRITE,URINE NEGATIVE (NEGATIVE); PROTEIN,URINE 30 mg/dL (NEGATIVE); URINE SPECIFIC GRAVITY 1.023; UROBILINOGEN,URINE NEGATIVE mg/dL (<2.0)
[2018-06-17 13:35] LABS: HEMATOCRIT 30.6 % (36.0-47.0); HEMOGLOBIN 9.7 g/dL (12.0-15.5); MEAN CORPUSCULAR HGB CONC 31.9 g/dL (32.0-36.0); MEAN CORPUSCULAR VOLUME 72 fl (80-97); PLATELET COUNT 372 10^3/uL (150-450); RED BLOOD COUNT 4.25 10^6/uL (3.72-5.28); WHITE BLOOD COUNT 7.9 10^3/uL (4.0-10.5)
[2018-06-17 13:46] LABS: ALANINE AMINOTRANSFERASE 46 U/L (9-52); ALBUMIN 3.7 g/dL (3.5-5.0); ALKALINE PHOSPHATASE 117 U/L (38-126); ANION GAP 10 (5-19); ASPARTATE AMINO TRANSFERASE 18 U/L (14-36); BILIRUBIN,DIRECT 0.2 mg/dL (0.0-0.4); BILIRUBIN,TOTAL 0.3 mg/dL (0.2-1.3); BLOOD UREA NITROGEN 19 mg/dL (7-20); CALCIUM 8.9 mg/dL (8.4-10.2); CARBON DIOXIDE 29 mmol/L (22-30); CHLORIDE 105 mmol/L (98-107); GLUCOSE 82 mg/dL (75-110); POTASSIUM 4.4 mmol/L (3.6-5.0); SODIUM 143.5 mmol/L (137-145); TOTAL PROTEIN 7.1 g/dL (6.3-8.2)
[2018-06-17 13:50] LABS: ABSOLUTE LYMPHOCYTES# (MANUAL) 1.3 10^3/uL (0.5-4.7); ABSOLUTE MONOCYTES # (MANUAL) 0.2 10^3/uL (0.1-1.4); ABSOLUTE NEUTROPHILS# (MANUAL) 6.2 10^3/uL (1.7-8.2); BASOPHILS % (MANUAL) 2 % (0-2); EOSINOPHILS % (MANUAL) 2 % (0-6); LYMPHOCYTES % (MANUAL) 16 % (13-45); MONOCYTES % (MANUAL) 2 % (3-13); SEGMENTED NEUTROPHILS % (MAN) 78 % (42-78); TOTAL CELLS COUNTED 100
[2018-06-17 13:51] LABS: ANISOCYTOSIS 1+; HYPOCHROMASIA 1+; POLYCHROMASIA SLIGHT
[2018-06-17 13:52] LABS: PLATELET COMMENT ADEQUATE; PLATELET LARGE PRESENT
--- NOTE | 2018-06-17 15:05 | ER Document Report ---
ED GI/ - General Mode of Arrival: Ambulatory Information source: Patient TRAVEL OUTSIDE OF THE [place] IN LAST 30 DAYS: No <EN SOSA - Last Filed: 06/17/18 17:15> <WILLIAM MYERS - Last Filed: 06/17/18 23:08> - General Chief Complaint: Wound Infection Stated Complaint: PAIN Time Seen by Provider: 06/17/18 12:56 Notes: 32-year-old female 1 week via that presents to the emergency department today with complaints of fevers last night. Patient states that her fever got to 104 last night. Patient states she took ibuprofen at 0730 prior to arrival today. Patient gave at 40 weeks via due to decreasing heart tones. Patient states she was prescribed 5 mg Percocet which she has run out of. Patient states the pain has increased since running out the percocet. Patient states she has not has any discharge over the area. Patient states she has pain with urination in her lower abdomen, she has had pain that wraps around her bilateral flanks, and associated nausea. Patient denies any cough, shortness of breath, throat pain, vomiting, or diarrhea. (EN SOSA) - Related Data Allergies/Adverse Reactions: aspirin Adverse Reaction (Verified 06/17/18 14:13) ketorolac [From Toradol] Adverse Reaction (Verified 06/17/18 14:13) Past Medical History - General Information source: Patient - Social History Smoking Status: Never Smoker Cigarette use (# per day): No Chew tobacco use (# tins/day): No Frequency of alcohol use: None Drug Abuse: None Lives with: Family Family History: Reviewed & Not Pertinent Patient has suicidal ideation: No Patient has homicidal ideation: No Pulmonary Medical History: Reports: Hx Asthma Past Surgical History: Reports: Hx Section - Immunizations Immunizations up to date: Yes Hx Diphtheria, Pertussis, Tetanus Vaccination: Yes <EN SOSA - Last Filed: 06/17/18 17:15> Review of Systems - Review of Systems Constitutional: See HPI, Fever EENT: denies: Throat pain Cardiovascular: No symptoms reported Respiratory: denies: Cough, Short of breath Gastrointestinal: See HPI, Nausea. denies: Diarrhea, Vomiting Genitourinary: See HPI, Flank pain, Other - abdominal discomfort when urinating Female Genitourinary: No symptoms reported Musculoskeletal: No symptoms reported Skin: No symptoms reported Hematologic/Lymphatic: No symptoms reported Neurological/Psychological: No symptoms reported -: Yes All other systems reviewed and negative <EN SOSA - Last Filed: 06/17/18 17:15> Physical Exam <EN SOSA - Last Filed: 06/17/18 17:15> - Vital signs Interpretation: Normal - General General appearance: Alert In distress: None - HEENT Head: Normocephalic, Atraumatic Eyes: Normal Pupils: PERRL - Respiratory Respiratory status: No respiratory distress Chest status: Nontender Breath sounds: Normal Chest palpation: Normal - Cardiovascular Rhythm: Regular Heart sounds: Normal auscultation Murmur: No - Abdominal Inspection: Normal - Incision consistent with recent section. Appears clean dry and intact with no streaking erythema, induration, or discharge Distension: No distension Bowel sounds: Normal Tenderness: Tender - Mild suprapubic. No: Guarding, Rebound Organomegaly: No organomegaly - Back Back: Normal, Nontender - Extremities General upper extremity: Normal inspection, Nontender, Normal color, Normal ROM , Normal temperature General lower extremity: Normal inspection, Nontender, Normal color, Normal ROM , Normal temperature, Normal weight bearing. No: Shayna's sign - Neurological Neuro grossly intact: Yes Cognition: Normal Orientation: AAOx4 Luanne Coma Scale Eye Opening: Spontaneous [place] Coma Scale Verbal: Oriented [place] Coma Scale Motor: Obeys Commands Luanne Coma Scale Total: 15 Speech: Normal Motor strength normal: LUE, RUE, LLE, RLE Sensory: Normal - Psychological Associated symptoms: Normal affect, Normal mood - Skin Skin Temperature: Warm Skin Moisture: Dry Skin Color: Normal <WILLIAM MYERS - Last Filed: 06/17/18 23:08> - Vital signs Vitals: Temp Pulse BP Pulse Ox 97.9 F 64 110/62 100 06/17/18 13:05 06/17/18 13:05 06/17/18 13:05 06/17/18 13:05 - General Notes: Appears uncomfortable (WILLIAM MYERS) Course - Laboratory Result Diagrams: 06/17/18 13:11 06/17/18 13:11 <EN SOSA - Last Filed: 06/17/18 17:15> - Laboratory Result Diagrams: 06/17/18 13:11 06/17/18 13:11 - Diagnostic Test Radiology reviewed: Reports reviewed <WILLIAM MYERS - Last Filed: 06/17/18 23:08> - Re-evaluation Re-evalutation: 06/17/18 15:49 Patient updated 06/17/18 16:50 Went to see how patient was feeling, currently in ultrasound. (EN SOSA) Patient is a 32-year-old female who had a recent last week and comes in complaining of lower abdominal pain and still passing clots. This was her first . Denies any complications during . was because heart tones were decreased. No evidence for infection of incision on exam. Urine with possible infection and patient complains of dysuria On reevaluation, patient said that her abdominal pain is better but now she has a headache. Patient does have elevation of blood pressure and protein in urine. No preeclampsia or hypertension in . Discussed with CUSTODIAL OPERATIONS MANAGER and protein likely from blood due to bleeding. No acute findings on ultrasound. Recommends patient be discharged home and can follow-up in the office early next week. Patient is feeling better and would like to go home. She is to follow-up with her doctor on Tuesday. Return if any further concerns. Stable for discharge. (WILLIAM MYERS) - Vital Signs Vital signs: Temp Pulse Resp BP Pulse Ox 98.6 F 63 16 144/73 H 100 06/17/18 19:02 06/17/18 19:02 06/17/18 19:02 06/17/18 19:02 06/17/18 19:02 - Laboratory Laboratory results interpreted by me: 06/17/18 06/17/18 13:11 13:11 Hgb 9.7 L Hct 30.6 L MCV 72 L MCH 23.0 L MCHC 31.9 L RDW 16.0 H Monocytes % (Manual) 2 L Urine Protein 30 H Urine Blood MODERATE H Ur Leukocyte Esterase LARGE H Discharge <EN SOSA - Last Filed: 06/17/18 17:15> <WILLIAM MYERS - Last Filed: 06/17/18 23:08> - Discharge Clinical Impression: S/P primary low transverse UTI (urinary tract infection) Qualifiers: Urinary tract infection type: site unspecified Hematuria presence: with hematuria Qualified Code(s): N39.0 - Urinary tract infection, site not specified Condition: Stable Disposition: HOME, SELF-CARE Instructions: Urinary Tract Infection ([facility]) Additional Instructions: Please call your CUSTODIAL OPERATIONS MANAGER for an appointment this week Prescriptions: Cephalexin Monohydrate [Keflex 500 mg Capsule] 500 mg PO Q6H 7 Days capsule Metoclopramide HCl [Reglan 10 mg Tablet] 1 - 2 tab PO ASDIR PRN #25 tablet PRN Reason: Oxycodone HCl/Acetaminophen [Percocet 5-325 mg Tablet] 1 tab PO BID #6 tablet Referrals: SABRA LAU MD [ACTIVE STAFF] - Follow up in 3-5 days Scribe Attestation: 06/17/18 22:02 I personally performed the services described in the documentation, reviewed and edited the documentation which was dictated to the scribe in my presence, and it accurately records my words and actions. (WILLIAM MYERS) Scribe Documentation - Scribe Written by Scribe:: Jordana Jacobsen, 06/17/2018 [id number] acting as scribe for :: Laurent <EN SOSA - Last Filed: 06/17/18 17:15>
[2018-06-17] MEDS ORDERED: FENTANYL CITRATE INJ/PF 100 MCG/2 ML AMPUL IV ONE (15:07)
[2018-06-17] MEDS ORDERED: CEFTRIAXONE 1 GM/D5W RTU 1 GM/50 ML RTUPB IV ONE (15:07)
--- NOTE | 2018-06-17 17:16 | RADIOLOGY REPORT (SQ) ---
EXAM DESCRIPTION: U/S NON-OB PELVIS TV W/O DOP COMPLETED DATE/TIME: 06/17/2018 5:00 pm REASON FOR STUDY: pain and fever COMPARISON: None. TECHNIQUE: Dynamic and static grayscale images acquired of the pelvis via transabdominal and transva ginal approach and recorded on PACS. Additional selected color Doppler and spectral images recorded. LIMITATIONS: None. FINDINGS: UTERUS: The uterus is enlarged, consistent with state. No hyperemia or masses are identified. ENDOMETRIAL STRIPE: No focal or generalized thickening. No masses. CERVIX: No nabothian cysts. RIGHT OVARY AND DOPPLER: Ovary not visualized. LEFT OVARY AND DOPPLER: Ovary not visualized. FREE FLUID: None noted. OTHER: No other significant finding. MEASUREMENTS: UTERUS: 15.1 x 8.5 cm ENDOMETRIAL STRIPE: 1.1 cm RIGHT OVARY: Not visualized. LEFT OVARY: Not visualized. IMPRESSION: Normal sonographic appearance of the uterus. TECHNICAL DOCUMENTATION: JOB ID: [id number] [employer]- All Rights Reserved Rev-12/02 Reading location - IP/workstation name: [email or web address]
[2018-06-17] MEDS ORDERED: DIPHENHYDRAMINE HCL 50 MG/ML VIAL IV ONE (17:35)
[2018-06-17] MEDS ORDERED: PROCHLORPERAZINE EDISYLATE INJ 10 MG/2 ML VIAL IV ONE (17:35)
[2018-06-17 19:03] VITALS: BP 144/73
[2018-06-17] MEDS ORDERED: ONDANSETRON ODT 4 MG TAB (6 TAB/ER DISP) PO PRN (19:04)
== END 2018-06-17 19:21 | disposition home or self-care (01) ==
LOC: ER 12:35
DX: O86.20 Urinary tract infection following delivery, unspecified (principal); R31.9 Hematuria, unspecified; O72.2 Delayed and secondary postpartum hemorrhage; O90.89 Other complications of the puerperium, not elsewhere classified; R10.30 Lower abdominal pain, unspecified; R10.9 Unspecified abdominal pain; R51 Headache; R11.0 Nausea; R03.0 Elevated blood-pressure reading, without diagnosis of hypertension; O99.53 Diseases of the respiratory system complicating the puerperium; J45.909 Unspecified asthma, uncomplicated; Z98.890 Other specified postprocedural states
CPT/HCPCS: 99284; 96361; 96375; 96365; 36415; 87086; 85025; 80053; 81001; 76830; J1200; J3010; J1885; J0780; J7030; J0696

== ENCOUNTER 2018-06-23 15:08 | Observation (INO) | payer BC, MEDICAID ==
[2018-06-23] MEDS ORDERED: ONDANSETRON HCL INJ/PF 4 MG/2 ML SDV IV ONE ×2 (15:56→18:40)
[2018-06-23] MEDS ORDERED: MORPHINE SULFATE 10 MG/ML INJ IV ONE ×3 (15:56→23:00)
[2018-06-23] MEDS ORDERED: DICYCLOMINE HCL INJ 20 MG/2 ML AMPULE IM ONE (15:57)
--- NOTE | 2018-06-23 15:58 | ER Document Report ---
ED Medical Screen (RME) - General Chief Complaint: Abdominal Pain Stated Complaint: ABDOMINAL PAIN Time Seen by Provider: 06/23/18 15:55 Notes: 32 years old female 2 weeks, , taking oxycodone for pain, presents today with abdominal pain, more so in the upper abdomen and right upper quadrant and epigastric region. The pain is radiating to her back to. No fever chills. Irregular bowel habit. On examination seems to be in moderate discomfort. Diffuse abdominal tenderness more so on the upper abdomen. Both epigastrium and right upper quadrant. TRAVEL OUTSIDE OF THE [place] IN LAST 30 DAYS: No - Related Data Allergies/Adverse Reactions: aspirin Adverse Reaction (Verified 06/23/18 15:10) ketorolac [From Toradol] Adverse Reaction (Verified 06/23/18 15:10) Past Medical History - Social History Family history: None Pulmonary Medical History: Reports: Hx Asthma Renal/ Medical History: Denies: Hx Peritoneal Dialysis Past Surgical History: Reports: Hx Section - Immunizations Immunizations up to date: Yes Hx Diphtheria, Pertussis, Tetanus Vaccination: Yes Physical Exam - Vital signs Vitals: Temp Pulse Resp BP Pulse Ox 97.7 F 105 H 18 124/87 H 100 06/23/18 15:23 06/23/18 15:23 06/23/18 15:23 06/23/18 15:23 06/23/18 15:23 Course - Vital Signs Vital signs: Temp Pulse Resp BP Pulse Ox 97.7 F 105 H 18 124/87 H 100 06/23/18 15:23 06/23/18 15:23 06/23/18 15:23 06/23/18 15:23 06/23/18 15:23
[2018-06-23 16:41] LABS: ABSOLUTE BASOPHILS # (AUTO) 0.1 10^3/uL (0.0-0.2); ABSOLUTE EOSINOPHILS # (AUTO) 0.1 10^3/uL (0.0-0.6); ABSOLUTE LYMPHOCYTES (AUTO) 1.4 10^3/uL (0.5-4.7); ABSOLUTE MONOCYTES (AUTO) 0.7 10^3/uL (0.1-1.4); ABSOLUTE NEUT (AUTO) 10.8 10^3/uL (1.7-8.2); BASOPHILS % (AUTO) 0.6 % (0-2); EOSINOPHILS % (AUTO) 0.9 % (0-6); HEMATOCRIT 34.2 % (36.0-47.0); LYMPHOCYTES % (AUTO) 10.3 % (13-45); MEAN CORPUSCULAR HEMOGLOBIN 22.7 pg (27.0-33.4); MEAN CORPUSCULAR VOLUME 71 fl (80-97); MONOCYTES % (AUTO) 5.1 % (3-13); PLATELET COUNT 376 10^3/uL (150-450); RED BLOOD COUNT 4.82 10^6/uL (3.72-5.28); RED CELL DISTRIBUTION WIDTH 16.3 % (11.5-14.0); SEGMENTED NEUTROPHILS % (AUTO) 83.1 % (42-78); TOTAL CELLS COUNTED % (AUTO) 100 %
[2018-06-23 16:48] LABS: APPEARANCE,URINE CLOUDY; BILIRUBIN,URINE NEGATIVE (NEGATIVE); COLOR,URINE YELLOW; GLUCOSE, URINE NEGATIVE (NEGATIVE); KETONES,URINE NEGATIVE (NEGATIVE); LEUKOCYTE ESTERASE,URINE LARGE (NEGATIVE); NITRITE,URINE NEGATIVE (NEGATIVE); PROTEIN,URINE 30 mg/dL (NEGATIVE); URINE SPECIFIC GRAVITY 1.021
--- NOTE | 2018-06-23 16:56 | RADIOLOGY REPORT (SQ) ---
EXAM DESCRIPTION: KUB/ABDOMEN (SINGLE VIEW) COMPLETED DATE/TIME: 06/23/2018 4:46 pm REASON FOR STUDY: Abdominal pain COMPARISON: Pelvic ultrasound 06/17/2018 NUMBER OF VIEWS: One view. TECHNIQUE: Supine radiographic image of the abdomen acquired. LIMITATIONS: None. FINDINGS: BOWEL GAS PATTERN: Normal bowel gas pattern. No dilated loops. CALCIFICATIONS: No suspicious calcifications. SOFT TISSUES: No gross mass or suggestion of organomegaly. HARDWARE: None in the abdomen. BONES: No acute fracture. No worrisome bone lesions. OTHER: No other significant finding. IMPRESSION: NO RADIOGRAPHIC EVIDENCE FOR ACUTE ABDOMINAL DISEASE. TECHNICAL DOCUMENTATION: JOB ID: [id number] [employer]- All Rights Reserved Reading location - IP/workstation name: [email or web address]
[2018-06-23 16:57] LABS: ALANINE AMINOTRANSFERASE 70 U/L (9-52); ALBUMIN 4.3 g/dL (3.5-5.0); ALKALINE PHOSPHATASE 150 U/L (38-126); ANION GAP 11 (5-19); ASPARTATE AMINO TRANSFERASE 118 U/L (14-36); BILIRUBIN,DIRECT 0.7 mg/dL (0.0-0.4); BLOOD UREA NITROGEN 16 mg/dL (7-20); CALCIUM 9.3 mg/dL (8.4-10.2); CARBON DIOXIDE 34 mmol/L (22-30); CHLORIDE 100 mmol/L (98-107); GLUCOSE 92 mg/dL (75-110); POTASSIUM 3.8 mmol/L (3.6-5.0); SODIUM 145.2 mmol/L (137-145); TOTAL PROTEIN 7.9 g/dL (6.3-8.2)
--- NOTE | 2018-06-23 17:09 | ER Document Report ---
ED GI/ - General Chief Complaint: Abdominal Pain Stated Complaint: ABDOMINAL PAIN Time Seen by Provider: 06/23/18 15:55 Mode of Arrival: Ambulatory Information source: Patient Notes: Patient is an otherwise healthy 32-year-old female who presents to the emergency department with chief complaint of right upper quadrant abdominal pain. She reports associated nausea and vomiting but denies diarrhea. She is approximately 3 weeks from a . She states that [facility] and they referred her here stating that she may be having gallbladder issues. Patient denies any fevers. Patient was recently diagnosed with a urinary tract infection here in the emergency department, I asked her if she had taken her antibiotics and she indicated that she had not taken them as prescribed. TRAVEL OUTSIDE OF THE [place] IN LAST 30 DAYS: No - Related Data Allergies/Adverse Reactions: aspirin Adverse Reaction (Verified 06/23/18 15:10) ketorolac [From Toradol] Adverse Reaction (Verified 06/23/18 15:10) Past Medical History - General Information source: Patient - Social History Smoking Status: Current Some Day Smoker Frequency of alcohol use: None Drug Abuse: None Family History: Reviewed & Not Pertinent Patient has suicidal ideation: No Patient has homicidal ideation: No Pulmonary Medical History: Reports: Hx Asthma Renal/ Medical History: Denies: Hx Peritoneal Dialysis Past Surgical History: Reports: Hx Section - Immunizations Immunizations up to date: Yes Hx Diphtheria, Pertussis, Tetanus Vaccination: Yes Review of Systems - Review of Systems Gastrointestinal: Abdominal pain, Nausea, Vomiting -: Yes All other systems reviewed and negative Physical Exam - Vital signs Vitals: Temp Pulse Resp BP Pulse Ox 97.7 F 105 H 18 124/87 H 100 06/23/18 15:23 06/23/18 15:23 06/23/18 15:23 06/23/18 15:23 06/23/18 15:23 - Notes Notes: PHYSICAL EXAMINATION: GENERAL: Well-appearing, well-nourished and in no acute distress. HEAD: Atraumatic, normocephalic. EYES: Pupils equal round and reactive to light, extraocular movements intact, conjunctiva are normal. ENT: Nares patent, oropharynx clear without exudates. Moist mucous membranes. NECK: Normal range of motion, supple without lymphadenopathy LUNGS: Breath sounds clear to auscultation bilaterally and equal. No wheezes rales or rhonchi. HEART: Regular rate and rhythm without murmurs ABDOMEN: Soft, non-distended, mildly tender right upper quadrant, negative Roberson sign. No guarding, no rebound. No masses appreciated. Female : No CVA tenderness noted on palpation. Musculoskeletal: Normal range of motion, no pitting or edema. No cyanosis. NEUROLOGICAL: Cranial nerves grossly intact. Normal speech, normal gait. Normal sensory, motor exams PSYCH: Normal mood, normal affect. SKIN: Warm, Dry, normal turgor, no rashes or lesions noted. Course - Re-evaluation Re-evalutation: 06/23/18 18:35 CBC with mild leukocytosis, WBCs 13. Liver enzymes are elevated, AST 118, ALT 70, alk phos 150. Lipase is unremarkable. Urinalysis does show large blood and large leukocyte esterase and greater than 182 white cells. There are occasional white blood cell clumps. Patient did not complete her course of antibiotics for recent UTI. Patient will be given 1 g ceftriaxone IV. Right upper quadrant ultrasound shows gallbladder wall thickening, pericholecystic fluid and gallstones. This is suggestive of acute cholecystitis. Consult to Dr. Gill, on-call surgeon who agrees to accept patient for admission. Patient n.p.o. Patient updated on plan of care and is agreeable to same. Patient medicated with additional IV Zofran and IV morphine. Patient has not had any episodes of vomiting while in the emergency department, her vital signs have been stable and patient appears comfortable. - Vital Signs Vital signs: Temp Pulse Resp BP Pulse Ox 98 F 105 H 18 124/87 H 100 06/23/18 17:24 06/23/18 15:23 06/23/18 15:23 06/23/18 15:23 06/23/18 15:23 - Laboratory Result Diagrams: 06/23/18 16:20 06/23/18 16:20 Laboratory results interpreted by me: 06/23/18 06/23/18 06/23/18 16:20 16:20 16:20 WBC 13.0 H Hgb 11.0 L Hct 34.2 L MCV 71 L MCH 22.7 L RDW 16.3 H Seg Neutrophils % 83.1 H Lymphocytes % 10.3 L Absolute Neutrophils 10.8 H Sodium 145.2 H Carbon Dioxide 34 H Direct Bilirubin 0.7 H AST 118 H ALT 70 H Alkaline Phosphatase 150 H Urine Protein 30 H Urine Blood LARGE H Urine Urobilinogen 4.0 H Ur Leukocyte Esterase LARGE H Discharge - Discharge Clinical Impression: Acute cholecystitis, Elevated liver enzymes Urinary tract infection Qualifiers: Urinary tract infection type: site unspecified Hematuria presence: without hematuria Qualified Code(s): N39.0 - Urinary tract infection, site not specified Disposition: ADMITTED INPATIENT Admitting Provider: Surgicalist Unit Admitted: Medical Floor
[2018-06-23] MEDS ORDERED: CEFTRIAXONE 1 GM/D5W RTU 1 GM/50 ML RTUPB IV ONE ×3 (17:50→18:03)
--- NOTE | 2018-06-23 18:33 | RADIOLOGY REPORT (SQ) ---
EXAM DESCRIPTION: US ABDOMEN LIMITED COMPLETED DATE/TME: 06/23/2018 15:56 CLINICAL HISTORY: 32 years, Female, Right upper quadrant abdominal pain rule out galls COMPARISON: None. TECHNIQUE: LIMITATIONS: None. FINDINGS: IMPRESSION: copyright 2010 [employer]- All Rights Reserved EXAM DESCRIPTION: CLINICAL HISTORY: Right upper quadrant abdominal pain rule out galls COMPARISON: None. FINDINGS: Sonography was performed of the right upper quadrant. Liver span 18.8 cm. There is pericholecystic fluid and the gallbladder wall is thickened at 5 mm. There are stones in the gallbladder but no sonographic Roberson's sign. Flow in the portal vein is in the expected direction. Right kidney span is 12.6 cm. No focal hepatic or pancreatic lesion is seen. The right kidney appears normal. Common duct is normal in caliber. IMPRESSION: Findings suggest acute cholecystitis.
[2018-06-23] MEDS ORDERED: RINGERS SOLUTION,LACTATED 1,000 ML IV ONE (18:40)
--- NOTE | 2018-06-23 19:14 | PDOC H&P ---
History of Present Illness Admission Date/PCP: 06/23/18 Patient complains of: abdominal pains History of Present Illness: DEVEN LAM is a 32 year old female who is 2 weeks post suddenly c/ o nausea and severe epigastric and RUQ pains radiating to the back around 1:30 pm after eating a greasy meal at [facility] [employer]. Ultrasound showed gallstones with acute cholecystitis. Denies fever/chills, diarrhea/constipation, chest pains/ cough nor dysuria. Past Medical History Pulmonary Medical History: Reports: Asthma Past Surgical History Past Surgical History: Reports: Section Social History Smoking Status: Current Some Day Smoker Family History Family History: Reviewed & Not Pertinent Parental Family History Reviewed: Yes Children Family History Reviewed: No Sibling(s) Family History Reviewed.: No Medication/Allergy Home Medications: Vit,Calc76/Iron/Folic [Prenatabs Rx Tablet] 1 tab PO DAILY 05/07/18 Ibuprofen [Motrin 800 mg Tablet] 800 mg PO Q8HP PRN #90 tablet 06/11/18 Ferrous Sulfate 325 mg PO BID #60 tablet.dr 06/12/18 Cephalexin Monohydrate [Keflex 500 mg Capsule] 500 mg PO Q6H 7 Days capsule 08/04 Metoclopramide HCl [Reglan 10 mg Tablet] 1 - 2 tab PO ASDIR PRN #25 tablet 06/17 Oxycodone HCl/Acetaminophen [Percocet 5-325 mg Tablet] 1 tab PO BID #6 tablet Allergies/Adverse Reactions: aspirin Adverse Reaction (Verified 06/23/18 15:10) ketorolac [From Toradol] Adverse Reaction (Verified 06/23/18 15:10) Review of Systems Constitutional: PRESENT: as per HPI Eyes: PRESENT: other - no visual/hearing changes Cardiovascular: PRESENT: as per HPI Respiratory: PRESENT: as per HPI Gastrointestinal: PRESENT: abdominal pain, nausea Genitourinary: PRESENT: as per HPI Neurological: PRESENT: other - no seizures Hematologic/Lymphatic: PRESENT: other - no easy bruising Physical Exam Vital Signs: Temp Pulse Resp BP Pulse Ox 98 F 105 H 18 124/87 H 100 06/23/18 17:24 06/23/18 15:23 06/23/18 15:23 06/23/18 15:23 06/23/18 15:23 Intake & Output 06/22/18 06/23/18 06/24/18 06:59 06:59 06:59 Intake Total 50 Balance 50 Weight 77.3 kg General appearance: PRESENT: mild distress Head exam: PRESENT: atraumatic Eye exam: PRESENT: conjunctiva pink Mouth exam: PRESENT: moist Neck exam: PRESENT: full ROM Respiratory exam: PRESENT: clear to auscultation leia Cardiovascular exam: PRESENT: RRR Pulses: PRESENT: normal radial pulses Vascular exam: PRESENT: normal capillary refill GI/Abdominal exam: PRESENT: soft, tenderness - TUQ and epigastrium Rectal exam: PRESENT: deferred Extremities exam: PRESENT: full ROM Musculoskeletal exam: PRESENT: ambulatory Neurological exam: PRESENT: alert, oriented to person, oriented to place, oriented to time, oriented to situation Psychiatric exam: PRESENT: appropriate affect Skin exam: PRESENT: normal color, warm Results Laboratory Results: 06/23/18 16:20 06/23/18 16:20 06/23/18 06/23/18 06/23/18 16:20 16:20 16:20 WBC 13.0 H RBC 4.82 Hgb 11.0 L Hct 34.2 L MCV 71 L MCH 22.7 L MCHC 32.0 RDW 16.3 H Plt Count 376 Seg Neutrophils % 83.1 H Lymphocytes % 10.3 L Monocytes % 5.1 Eosinophils % 0.9 Basophils % 0.6 Absolute Neutrophils 10.8 H Absolute Lymphocytes 1.4 Absolute Monocytes 0.7 Absolute Eosinophils 0.1 Absolute Basophils 0.1 Sodium 145.2 H Potassium 3.8 Chloride 100 Carbon Dioxide 34 H Anion Gap 11 BUN 16 Creatinine 0.72 Est GFR ( Amer) > 60 Est GFR (Non-Af Amer) > 60 Glucose 92 Calcium 9.3 Total Bilirubin 1.0 AST 118 H ALT 70 H Alkaline Phosphatase 150 H Total Protein 7.9 Albumin 4.3 Lipase 137.0 Urine Color YELLOW Urine Appearance CLOUDY Urine pH 5.0 Ur Specific [place] 1.021 Urine Protein 30 H Urine Glucose (UA) NEGATIVE Urine Ketones NEGATIVE Urine Blood LARGE H Urine Nitrite NEGATIVE Ur Leukocyte Esterase LARGE H Urine WBC (Auto) >182 Urine RBC (Auto) 85 Impressions: Abdomen Ultrasound 06/23/18 15:56 IMPRESSION: copyright 2010 [employer]- All Rights Reserved EXAM DESCRIPTION: CLINICAL HISTORY: Right upper quadrant abdominal pain rule out galls COMPARISON: None. FINDINGS: Sonography was performed of the right upper quadrant. Liver span 18.8 cm. There is pericholecystic fluid and the gallbladder wall is thickened at 5 mm. There are stones in the gallbladder but no sonographic Roberson's sign. Flow in the portal vein is in the expected direction. Right kidney span is 12.6 cm. No focal hepatic or pancreatic lesion is seen. The right kidney appears normal. Common duct is normal in caliber. IMPRESSION: Findings suggest acute cholecystitis. KUB X-Ray 06/23/18 15:56 IMPRESSION: NO RADIOGRAPHIC EVIDENCE FOR ACUTE ABDOMINAL DISEASE. Assessment & Plan - Diagnosis (1) Cholelithiasis Is this a current diagnosis for this admission?: Yes - Time Time Spent: 30 to 50 Minutes - Inpatient Certification Medical Necessity: Need For IV Fluids, Need for Pain Control, Need for IV Antibiotics, Need for Surgery - Plan Summary Plan Summary: Keep NPO Start IV antibiotics Hydrate Repeat Lab work For lap cholecystectomy and possible cholangiogram in am.
[2018-06-23] MEDS ORDERED: HYDROMORPHONE HCL INJ/PF 2 MG/ML AMPULE IV ONE (19:45)
[2018-06-24] MEDS: RINGERS SOLUTION,LACTATED 1,000 ML IV PRN ×2 (01:23→23:36)
[2018-06-24 06:21] LABS: ABSOLUTE BASOPHILS # (AUTO) 0.1 10^3/uL (0.0-0.2); ABSOLUTE EOSINOPHILS # (AUTO) 0.2 10^3/uL (0.0-0.6); ABSOLUTE LYMPHOCYTES (AUTO) 1.7 10^3/uL (0.5-4.7); ABSOLUTE MONOCYTES (AUTO) 0.4 10^3/uL (0.1-1.4); ABSOLUTE NEUT (AUTO) 3.1 10^3/uL (1.7-8.2); BASOPHILS % (AUTO) 1.2 % (0-2); EOSINOPHILS % (AUTO) 4.2 % (0-6); HEMATOCRIT 29.4 % (36.0-47.0); HEMOGLOBIN 9.4 g/dL (12.0-15.5); MEAN CORPUSCULAR HEMOGLOBIN 22.5 pg (27.0-33.4); MEAN CORPUSCULAR VOLUME 70 fl (80-97); PLATELET COUNT 309 10^3/uL (150-450); RED BLOOD COUNT 4.18 10^6/uL (3.72-5.28); RED CELL DISTRIBUTION WIDTH 16.2 % (11.5-14.0); SEGMENTED NEUTROPHILS % (AUTO) 56.6 % (42-78); TOTAL CELLS COUNTED % (AUTO) 100 %; WHITE BLOOD COUNT 5.5 10^3/uL (4.0-10.5)
[2018-06-24 06:44] LABS: ALANINE AMINOTRANSFERASE 102 U/L (9-52); ALBUMIN 3.2 g/dL (3.5-5.0); ALKALINE PHOSPHATASE 145 U/L (38-126); ANION GAP 12 (5-19); ASPARTATE AMINO TRANSFERASE 72 U/L (14-36); BILIRUBIN,DIRECT 0.1 mg/dL (0.0-0.4); BILIRUBIN,TOTAL 0.5 mg/dL (0.2-1.3); BLOOD UREA NITROGEN 12 mg/dL (7-20); CALCIUM 8.3 mg/dL (8.4-10.2); CARBON DIOXIDE 26 mmol/L (22-30); CHLORIDE 104 mmol/L (98-107); GLUCOSE 88 mg/dL (75-110); LIPASE 25.6 U/L (23-300); POTASSIUM 3.9 mmol/L (3.6-5.0); SODIUM 141.8 mmol/L (137-145); TOTAL PROTEIN 5.8 g/dL (6.3-8.2)
[2018-06-24] MEDS ORDERED: GLUCAGON,HUMAN RECOMB 1 MG INJ SUBCUT PRN (07:37)
[2018-06-24] MEDS ORDERED: DEXTROSE 40% GEL 15 GM TUBE PO PRN ×2 (07:37)
[2018-06-24] MEDS ORDERED: DEXTROSE 50%-WATER 25 GM/50 ML DISP.SYRIN IV PRN ×2 (07:37)
[2018-06-24] MEDS ORDERED: GLYCOPYRROLATE 1 MG/5 ML SYRINGE ONE (08:14)
[2018-06-24] MEDS ORDERED: ROCURONIUM BROMIDE INJ 50 MG/5 ML VIAL IV ONE (08:14)
[2018-06-24] MEDS ORDERED: NEOSTIGMINE METHYLSULFATE 10 MG/10 ML VIAL ONE (08:14)
[2018-06-24] MEDS ORDERED: SUCCINYLCHOLINE CHLORIDE INJ 200 MG/10 ML VIAL ONE (08:14)
[2018-06-24] MEDS: MORPHINE SULFATE 10 MG/ML INJ IV PRN ×3 (08:31→20:11)
[2018-06-24] MEDS ORDERED: CEFTRIAXONE 1 GM/D5W RTU 1 GM/50 ML RTUPB IV SCH (10:00)
[2018-06-24] MEDS ORDERED: HYDROMORPHONE HCL INJ/PF 2 MG/ML AMPULE ONE (10:31)
[2018-06-24] MEDS ORDERED: MIDAZOLAM 2 MG/2 ML INJ ONE (10:31)
[2018-06-24] MEDS ORDERED: FENTANYL CITRATE INJ/PF 100 MCG/2 ML AMPUL ONE (10:31)
[2018-06-24] MEDS ORDERED: ONDANSETRON HCL INJ/PF 4 MG/2 ML SDV ONE (10:32)
[2018-06-24] MEDS ORDERED: EPHEDRINE SULFATE INJ 50 MG/1 ML AMPULE ONE (10:32)
[2018-06-24] MEDS ORDERED: ACETAMINOPHEN 1,000 MG/100 ML RTUPB IV ONE (10:32)
[2018-06-24] MEDS ORDERED: DEXAMETHASONE SOD PHOSPHATE INJ 4 MG/1 ML VIAL ONE (10:32)
[2018-06-24] MEDS ORDERED: PROPOFOL INJ 200 MG/20 ML VIAL IV ONE (10:32)
[2018-06-24] MEDS ORDERED: BUPIVACAINE HCL 0.25% /EPINEPHRINE INJ/PF 30 ML SDV ONE (10:35)
[2018-06-24] MEDS ORDERED: FENTANYL CITRATE INJ/PF 100 MCG/2 ML AMPUL IV PRN ×3 (11:56)
[2018-06-24] MEDS ORDERED: MEPERIDINE HCL/PF INJ 25 MG/1 ML DISP.SYRIN IV PRN (11:56)
[2018-06-24] MEDS ORDERED: PROMETHAZINE HCL INJ 25 MG/1 ML VIAL IV PRN (11:56)
[2018-06-24] MEDS ORDERED: DIPHENHYDRAMINE HCL 50 MG/ML VIAL IV PRN (11:56)
--- NOTE | 2018-06-24 12:39 | RADIOLOGY REPORT (SQ) ---
EXAM DESCRIPTION: CHOLANGIOGRAM OPERATIVE COMPLETED DATE/TIME: 06/24/2018 12:23 pm REASON FOR STUDY: RIGHT UPPER QUADRANT PAIN COMPARISON: None. FLUOROSCOPY TIME: 0.3 minutes 6 images saved to PACS. TECHNIQUE: 6 images were obtained from an intraoperative cholangiogram. LIMITATIONS: None. FINDINGS: There is opacification of the bile ducts, cystic duct remnants and second portion of the d uodenum without evidence of fixed filling defect or significant extravasation. IMPRESSION: INTRAOPERATIVE CHOLANGIOGRAM. COMMENT: Quality ID [id number]: Final reports for procedures using fluoroscopy that document radiation exp osure indices, or exposure time and number of fluorographic images (if radiation exposure indices are not available) TECHNICAL DOCUMENTATION: JOB ID: [id number] [employer]- All Rights Reserved Reading location - IP/workstation name: [email or web address]
[2018-06-24] MEDS: ONDANSETRON HCL INJ/PF 4 MG/2 ML SDV IV PRN (13:45)
[2018-06-24] MEDS: OXYCODONE-ACETAMINOPHEN 5-325 MG TABLET PO PRN ×2 (16:12→23:35)
[2018-06-24] MEDS ORDERED: CEFTRIAXONE SODIUM 1,000 MG in DEXTROSE 5%-WATER 50 ML IV SCH (18:00)
[2018-06-25] MEDS: MORPHINE SULFATE 10 MG/ML INJ IV PRN (02:04)
[2018-06-25] MEDS: ONDANSETRON HCL INJ/PF 4 MG/2 ML SDV IV PRN (02:04)
[2018-06-25] MEDS ORDERED: HYDROMORPHONE HCL INJ/PF 2 MG/ML AMPULE IV ONE (02:45)
[2018-06-25 07:22] LABS: ALANINE AMINOTRANSFERASE 77 U/L (9-52); ALBUMIN 3.5 g/dL (3.5-5.0); ALKALINE PHOSPHATASE 140 U/L (38-126); ANION GAP 11 (5-19); ASPARTATE AMINO TRANSFERASE 35 U/L (14-36); BILIRUBIN,DIRECT 0.1 mg/dL (0.0-0.4); BILIRUBIN,TOTAL 0.2 mg/dL (0.2-1.3); BLOOD UREA NITROGEN 9 mg/dL (7-20); CALCIUM 9.1 mg/dL (8.4-10.2); CARBON DIOXIDE 28 mmol/L (22-30); CHLORIDE 102 mmol/L (98-107); GLUCOSE 99 mg/dL (75-110); POTASSIUM 4.6 mmol/L (3.6-5.0); SODIUM 141.1 mmol/L (137-145); TOTAL PROTEIN 6.5 g/dL (6.3-8.2)
[2018-06-25 07:31] LABS: HEMATOCRIT 28.7 % (36.0-47.0); HEMOGLOBIN 9.2 g/dL (12.0-15.5); MEAN CORPUSCULAR HEMOGLOBIN 22.8 pg (27.0-33.4); MEAN CORPUSCULAR HGB CONC 32.2 g/dL (32.0-36.0); MEAN CORPUSCULAR VOLUME 71 fl (80-97); PLATELET COUNT 360 10^3/uL (150-450); RED BLOOD COUNT 4.04 10^6/uL (3.72-5.28); RED CELL DISTRIBUTION WIDTH 16.1 % (11.5-14.0); WHITE BLOOD COUNT 9.4 10^3/uL (4.0-10.5)
[2018-06-25] MEDS: OXYCODONE-ACETAMINOPHEN 5-325 MG TABLET PO PRN (08:00)
[2018-06-25 08:12] VITALS: BP 126/55
--- NOTE | 2018-06-25 09:37 | OPERATIVE REPORT E ---
Operative Report NAME: DEVEN LAM : 1985 AGE: 32Y DATE OF SURGERY: 06/24/2018 ROOM: 205 PREOPERATIVE DIAGNOSES: 1. ACUTE CHOLECYSTITIS/CHOLELITHIASIS. 2. SLIGHTLY ELEVATED LIVER FUNCTION TEST. POSTOPERATIVE DIAGNOSES: 1. ACUTE CHOLECYSTITIS/CHOLELITHIASIS. 2. SLIGHTLY ELEVATED LIVER FUNCTION TEST. OPERATION: Laparoscopic cholecystectomy, intraoperative cholangiogram. SURGEON: LINDA TANNER M.D. ANESTHESIA: General. INDICATION: A 32-year-old female with abdominal pain for the past couple of days with associated nausea. She went to [employer] and ate some greasy food yesterday and at 1:00 developed severe abdominal pains from along the epigastric and right upper quadrant radiating to the back with nausea. She had ultrasound that showed gallstones with acute cholecystitis. Her LFTs are mildly elevated. Her LFTs this morning slightly lower. DESCRIPTION OF PROCEDURE: After adequate general anesthesia, the patient was placed in a supine position and the abdomen prepped and draped in the usual sterile fashion. Appropriate time out was then called. Next, an infraumbilical incision was made and the fascia identified and grasped with Abbie clamps. Fascia divided within the Abbie clamps and sutures placed on each side of the fascia using 0 Vicryl. The clamps were released and the digital palpation of the peritoneum was done and also divided with a hemostat and further finger palpation was done towards the abdominal cavity. No adhesions were noted. A Claire trocar was then inserted through the fascia through the abdominal cavity and CO2 insufflated to 15 mmHg pressure. Next, 3 other trocars were placed under direct vision, a 12 mm in the subxiphoid and two 5 mm in the right upper quadrant. The gallbladder was noted to be thickened with a lot of adhesions. The gallbladder was grasped. The adhesions lysed with the use of Harmonic chelsi. The cystic duct was then dissected as well as the cystic artery. Cystic artery was clipped and divided close to the gallbladder with the use of the Harmonic chelsi. A clip was placed in the cystic duct close to the gallbladder and the cystic duct cut with scissors. The cystic duct noted to be quite small. A cholangiocatheter was then placed through a 14-gauge Intracath and placed into the cystic duct with [place] dissector. A clip was placed over the first marker of the catheter. A cholangiogram was then performed. After about 40 mL of *------* appeared to be in the small bowel. No evidence of stone in the common bile duct noted. The cystic duct was removed and 3 clips placed in the proximal cystic duct and divided within the distal clips. The gallbladder was then removed with the use of Harmonic chelsi from the liver bed. The gallbladder was placed in an Endobag, and pulled out through the umbilical port. Claire trocar inserted back and the liver bed inspected and no evidence of bleeding noted. It was irrigated with saline solution and no acute bleeding further noted. Next, all of the trocars were removed and CO2 allowed to come out of the trocar sites. The infraumbilical area was then closed with [id number] suture using 0 Vicryl and then 2 stay sutures tied over. All the skin incisions were then closed with running subcuticular using 4-0 Vicryl undyed. Needle, instrument, and sponge counts were all correct. Estimated blood loss was about 20 mL. Patient was then brought to the recovery room in satisfactory condition. DICTATING PHYSICIAN: LINDA TANNER M.D. [id number] PHY#: [id number] ID: [id number] JOB#: [id number] ACCT: [id number] cc:LINDA TANNER M.D. >
--- NOTE | 2018-06-26 18:57 | DISCHARGE SUMMARY E ---
Discharge Summary NAME: DEVEN LAM : 1985 AGE: 32Y ADMITTED: 06/23/2018 DISCHARGED: 06/25/2018 PROCEDURE DONE: 06/24/2018, laparoscopic cholecystectomy with intraoperative cholangiogram. SURGEON: Anderson Gill MD HOSPITAL COURSE: This 32-year-old female, about 2 weeks , complained of right upper quadrant pains. Ultrasound showed gallstones with slightly elevated LFTs. The patient underwent laparoscopic cholecystectomy with intraoperative cholangiogram on 06/24/2018. No evidence of stones in the common bile duct noted, and there was prompt dye in the small bowel. Also, the liver function tests trending down on the day of discharge on 06/25/2018. The patient was given prescription for Percocet to take 1 every 4 hours for 12 pills as needed for pain. The patient is to be followed up in the surgical clinic in 2 weeks. The patient was advised not to do any lifting more than 10-15 pounds. She can carry her baby, which is about 7 pounds. DICTATING PHYSICIAN: ANDERSON GILL M.D. [id number] PHY#: [id number] ID: [id number] JOB#: [id number] ACCT: [id number] cc:ANDERSON GILL M.D. [facility],
== END 2018-06-25 11:38 | disposition home or self-care (01) ==
LOC: ER 15:08 → INTOOBSV 19:33 → EH 19:33 → 2N 21:55
PROVIDERS: ATTEND Surgery
PROC: BF101ZZ Fluoroscopy of Bile Ducts using Low Osmolar Contrast (ICD-10-PCS; 2018-06-24)
PROC: 0FT44ZZ Resection of Gallbladder, Percutaneous Endoscopic Approach (ICD-10-PCS; principal; 2018-06-24 11:00)
DX: O99.63 Diseases of the digestive system complicating the puerperium (principal); K80.12 Calculus of gallbladder with acute and chronic cholecystitis without obstruction; K82.8 Other specified diseases of gallbladder; O99.335 Smoking (tobacco) complicating the puerperium; F17.200 Nicotine dependence, unspecified, uncomplicated; R79.89 Other specified abnormal findings of blood chemistry; O86.20 Urinary tract infection following delivery, unspecified; Z87.440 Personal history of urinary (tract) infections
CPT/HCPCS: 96376; 99285; 96372; 96375; 96365; 36415 ×3; 87040; 87086; 83690 ×3; 85025 ×2; 85027; 81025; 87077; 87088; 80053 ×3; 81001; 88304 ×2; 74300; 74018; 76705; 94799; 47563; G0378 ×4; Q9967; J2250; J3490 ×3; J1100; J0500; J3010; J2270 ×3; J1170 ×3; J0330; J0696 ×2; J2405 ×3; J7120 ×2; J2704; J0131; 790

== ENCOUNTER 2019-05-04 15:25 | Emergency (ER) | payer BC, MEDICAID ==
[2019-05-04 15:47] VITALS: BP 110/60
--- NOTE | 2019-05-04 16:10 | ER Document Report ---
ED Medical Screen (RME) - General Chief Complaint: Urinary Problem Stated Complaint: UTI Time Seen by Provider: 05/04/19 16:09 Mode of Arrival: Ambulatory Information source: Patient Notes: 33-year-old female presents to ED for constant UTI. She states she goes to her primary care doctor and they gave her antibiotics but is not going away. She states they have not done any vaginal swabs. Patient is alert oriented respirations regular and unlabored. I have greeted and performed a rapid initial assessment of this patient. A comprehensive ED assessment and evaluation of the patient, analysis of test results and completion of medical decision making process will be conducted by an additional ED providers. TRAVEL OUTSIDE OF THE [place] IN LAST 30 DAYS: No - Related Data Allergies/Adverse Reactions: aspirin Adverse Reaction (Verified 06/23/18 15:10) ketorolac [From Toradol] Adverse Reaction (Verified 06/23/18 15:10) Past Medical History - Social History Family history: None - Past Medical History Cardiac Medical History: Denies: Hx Congestive Heart Failure, Hx Heart Attack, Hx Hypertension Pulmonary Medical History: Denies: Hx Asthma, Hx Bronchitis, Hx COPD, Hx Pneumonia, Hx Tuberculosis Neurological Medical History: Denies: Hx Seizures, Hx Parkinson's Disease Renal/ Medical History: Denies: Hx End Stage Renal Disease, Hx Kidney Stones, Hx Peritoneal Dialysis GI Medical History: Denies: Hx Cirrhosis, Hx Gastroesophageal Reflux Disease, Hx Ulcer Musculoskeltal Medical History: Denies Hx Arthritis, Denies Hx Multiple Sclerosis Psychiatric Medical History: Denies: Hx Bipolar Disorder, Hx Depression, Hx Schizophrenia Past Surgical History: Reports: Hx Section - Immunizations Immunizations up to date: Yes Hx Diphtheria, Pertussis, Tetanus Vaccination: Yes Physical Exam - Vital signs Vitals: Temp Pulse Resp BP Pulse Ox 98.2 F 71 18 110/60 100 05/04/19 15:46 05/04/19 15:46 05/04/19 15:46 05/04/19 15:46 05/04/19 15:46 Course - Vital Signs Vital signs: Temp Pulse Resp BP Pulse Ox 98.2 F 71 18 110/60 100 05/04/19 15:46 05/04/19 15:46 05/04/19 15:46 05/04/19 15:46 05/04/19 15:46
[2019-05-04 16:49] LABS: BACTERIA (WET MOUNT) 4+ BACTERIA SEEN; EPITHELIALS (WET MOUNT) 4+ EPITHELIALS SEEN; RBCS (WET MOUNT) 1+ RBCS SEEN; T.VAGINALIS (WET MOUNT) TRICHOMONAS SEEN; WBCS (WET MOUNT) 3+ WBCS SEEN; YEAST (WET MOUNT) NO YEAST SEEN
[2019-05-04 17:01] LABS: APPEARANCE,URINE SLIGHTLY-CLOUDY; BILIRUBIN,URINE NEGATIVE (NEGATIVE); COLOR,URINE YELLOW; GLUCOSE, URINE NEGATIVE (NEGATIVE); KETONES,URINE NEGATIVE (NEGATIVE); PROTEIN,URINE NEGATIVE (NEGATIVE); URINE SPECIFIC GRAVITY 1.024; UROBILINOGEN,URINE NEGATIVE mg/dL (<2.0)
--- NOTE | 2019-05-04 17:46 | ER Document Report ---
HPI - HPI Patient complains to provider of: Pain with void Time Seen by Provider: 05/04/19 16:09 Onset: Other - December Onset/Duration: Persistent Quality of pain: Burning Severity: Severe Pain Level: 4 Context: This 33-year-old female presents emergency department with complaints of pain with void, burning, and decreased output when she voids plus pain with intercourse since December. She reports she has been treated with at least 6 different antibiotics since December by her primary care provider. She reports nothing has helped the symptoms continue. She denies fever vomiting diarrhea complains of some right-sided flank pain. Reports she just finished Levaquin 1 week ago. She denies vaginal discharge. Associated Symptoms: None Exacerbated by: Other - Voiding, intercourse Relieved by: Denies Similar symptoms previously: Yes Recently seen / treated by doctor: Yes - URINARY Urinary: REPORTS: Dysuria, Urgency, Frequency - REPRODUCTIVE LMP: 04/28/19 Reproductive: DENIES: : Past Medical History - General Information source: Patient Last Menstrual Period: Just finished - Social History Smoking Status: Never Smoker Chew tobacco use (# tins/day): No Frequency of alcohol use: None Drug Abuse: None Lives with: Family Family History: Reviewed & Not Pertinent Patient has suicidal ideation: No Patient has homicidal ideation: No - Medical History Medical History: Negative - Past Medical History Cardiac Medical History: Denies: Hx Congestive Heart Failure, Hx Heart Attack, Hx Hypertension Pulmonary Medical History: Denies: Hx Asthma, Hx Bronchitis, Hx COPD, Hx Pneumonia, Hx Tuberculosis Neurological Medical History: Denies: Hx Seizures, Hx Parkinson's Disease Renal/ Medical History: Denies: Hx End Stage Renal Disease, Hx Kidney Stones, Hx Peritoneal Dialysis GI Medical History: Denies: Hx Cirrhosis, Hx Gastroesophageal Reflux Disease, Hx Ulcer Musculoskeletal Medical History: Denies Hx Arthritis, Denies Hx Multiple Sclerosis Psychiatric Medical History: Denies: Hx Bipolar Disorder, Hx Depression, Hx Schizophrenia Past Surgical History: Reports: Hx Section - Immunizations Immunizations up to date: Yes Hx Diphtheria, Pertussis, Tetanus Vaccination: Yes Vertical Provider Document - CONSTITUTIONAL Agree With Documented VS: Yes Exam Limitations: No Limitations General Appearance: WD/WN, No Apparent Distress - INFECTION CONTROL TRAVEL OUTSIDE OF THE [place] IN LAST 30 DAYS: No - HEENT HEENT: Atraumatic, Normocephalic - NECK Neck: Normal Inspection, Supple - RESPIRATORY Respiratory: Breath Sounds Normal, No Respiratory Distress - CARDIOVASCULAR Cardiovascular: Regular Rate, Regular Rhythm - GI/ABDOMEN Gastrointestinal: Abdomen Soft, Abdomen Non-Tender - BACK Back: Normal Inspection, CVA Tenderness-Right. negative: CVA Tenderness-Left - MUSCULOSKELETAL/EXTREMETIES Musculoskeletal/Extremeties: KELLEY BONE - NEURO Level of Consciousness: Awake, Alert, Appropriate Motor/Sensory: No Motor Deficit - DERM Integumentary: Warm, Dry Course - Re-evaluation Re-evalutation: 05/04/19 17:50 [age]-year-old female with complaints of pain with void urinary frequency with decreased output when she voids and pain with intercourse since December. Patient reports she is been treated with at least 6 different antibiotics since December for the symptoms. Reports she just recently finished Levaquin 1 week ago. Patient believes her primary care provider instructed her that the next step would be a referral to urologist. Patient reports she has never have a pelvic since this started but reports she is not having any vaginal pain. Discussed BV with her she reports she is not having symptoms discussed the wet mount vaginal swab. Will treat for BV. Also discussed antibiotics with patient. I instructed her since she has been on so many different antibiotics for the past 6 months I would not start her on another one without the urine culture. Also discussed the importance of follow-up with urologist for possible interstitial cystitis or something else since she is been having this problem for so long. Patient reports there is no way she could have a STD. She is not with interested in treatment or waiting for results. She will be contacted should the results be positive. Patient verbalized understanding to all information. Dictation of this chart was performed using voice recognition software; therefore, there may be some unintended grammatical errors. 05/04/19 19:24 STD cultures negative - Vital Signs Vital signs: Temp Pulse Resp BP Pulse Ox 98.2 F 71 18 110/60 100 05/04/19 15:46 05/04/19 15:46 05/04/19 15:46 05/04/19 15:46 05/04/19 15:46 - Laboratory Laboratory results interpreted by me: 05/04/19 16:20 Urine Blood SMALL H Leukocyte Esterase Rfl LARGE H Discharge - Discharge Clinical Impression: Dysuria, Bacterial vaginosis Condition: Stable Disposition: HOME, SELF-CARE Instructions: Metronidazole ([facility]), Urinary Anesthetic Agent ([facility]), Vaginosis, Bacterial ([facility]) Additional Instructions: *You have been evaluated for pain while voiding, bacterial vaginosis *A urine culture is pending. You will be contacted within the next 3 to 4 days to discuss antibiotics. *The STD cultures are pending and you will be contacted should you need treat ment. *Take medication as prescribed for BV. Take the urinary anesthetic, Pyridium for pain with voiding. *Push fluids *Follow up with your primary care provider within the next week for referral to urologist *Return to ED for worsening condition, changes, needs, fever increased right side pain Prescriptions: Metronidazole [Flagyl 500 mg Tablet] 500 mg PO BID #14 tablet Phenazopyridine HCl [Pyridium 200 mg Tablet] 200 mg PO TID #15 tablet Ondansetron [Zofran Odt 4 mg Tablet] 1 tab PO Q6H PRN #10 tab.rapdis PRN Reason: For Nausea/Vomiting Referrals: ARAMIS VALLEJO PA-C [Primary Care Provider] - Follow up in 1 week
[2019-05-04 18:19] LABS: CHLAM PCR NOT DETECTED (NOT DETECT)
== END 2019-05-04 17:59 | disposition home or self-care (01) ==
LOC: ER 15:25
DX: N76.0 Acute vaginitis (principal); B96.89 Other specified bacterial agents as the cause of diseases classified elsewhere; R30.0 Dysuria; N94.10 Unspecified dyspareunia; R10.9 Unspecified abdominal pain; R35.0 Frequency of micturition; R39.15 Urgency of urination
CPT/HCPCS: 81001; 87086; 87210; 87491; 87591; 99283